=== PATIENT | female | born 1945 | race Caucasian/White ===

== ENCOUNTER 2022-04-29 10:30 | Outpatient (RCR) | payer MEDICARE, OTHER, SELFPAY ==
--- NOTE | 2022-04-19 12:07 | PT.OPE ---
PT [place] [facility] PT [facility] Start: 04/19/22 07:46 Freq: Status: Active Protocol: Document 04/19/22 12:02 CJT (Rec: 04/19/22 12:06 CJT [id number]) E-Signed By Ari Madrigal PT Physical Therapy Outpatient Evaluation Insurance Information Recert Due Date 06/18/22 Insurance Name Medicare B Medical Diagnosis Z98.890 - Other specified postprocedural states S/P Rt lateral meniscectomy Treating Diagnosis M25.561 - Rt knee pain M25.661 - Stiffness of R knee Z47.89 - Orthopedic aftercare Referring Song Liu MD Subjective Subjective Pt presents post-op R lateral meniscectomy performed on 04/05. Pt notes her pain has been okay so far. Ranges from 3-6/10. Standing after sitting for a while causes pain in posterior knee that resolves after walking. Pt has been icing/elevating consistently. Still taking tylenol occasionally. Has been doing SLR exercises for strength. Date of Last Physician Visit 04/13/22 Date of Surgery (If applicable) 04/05/22 Current Work Status Retired Precautions Weight Bearing Status Weight Bear as Tolerated Therapy Limitations/Systems Review Not Limited Objective Range of Motion R knee AROM - 0-110 L knee AROM - 0-120 Strength R knee flexion - 3/5 MMT - limited by pain R knee extension - 4/5 MMT - limited by pain Assessment Assessment/Impression Pt is a 76 year old female who presents to OP PT clinic post -op R lateral meniscectomy performed on 04/05/22. Pt complains of stiffness behind R knee following periods of extended sitting and is otherwise progressing well, icing regularly and managing her pain without use of opioids. Testing reveals deficits in strength and ROM of R knee and swelling persists in R knee capsule. Skilled PT services are medically necessary to address deficits and return patient to highest level of function. Recommend physical therapy sessions 1-2/week for 8 weeks. Pt agrees with this plan. Printout of HEP was given for I completion and pt gives verbal understanding of each exercise. Plan of Care Rehabilitation Potential Excellent Physical Therapy Goals STG - To be completed in 2-3 weeks: 1. Pt will report consistent use of ice as well as elevation of surgical limb while resting to reduce inflammation and swelling. 2. Pt will demonstrate 120 degrees of knee flexion on surgical limb to reduce risk of contracture development and progress through rehabilitation as expected. 3. Pt to demonstrate ability to ambulate without AD and without gait deviations so that she may complete trips to grocery store while pushing cart and reduce strain on B knees/hips. LTG - To be completed in 8-12 weeks: 1. Pt to be I with HEP so that they may I manage progression of symptoms. 2. Pt will demonstrate ability to ascend/descend 20 steps without pain and minimal use of hands on rail without LOB so that she may confidently climb steps in her home safely . 3. Pt will perform 10+ squats with good control over medial/ lateral deviation of knees to show improved functional strength. Treatment Plan/Direct Interventions Electrical Stimulation,Ice/ Cold/Vasopneumatic,Joint Mobilization,Manual Therapy, Neuromuscular Re-ed,Self-Care/ Home Management,Therapeutic Exercises Frequency/Duration 1-2/week for 8 weeks Patient Will Be Discharged From Therapy Completion of LTG(s),Skills Plateau,Independent w/HEP, Independently Progressing Evaluation Billing Untimed Code Treatment Minutes 20 PT Eval No Charge No Complexity Low Certification Information Initial Certification Date 04/19/22 Ending Certification Date 06/18/22
== END 2022-07-14 11:19 | disposition home or self-care (01) ==
PROVIDERS: PCP Physician Assistant Medical; Visit Provider Physician Assistant Surgical
DX: M25.561 Pain in right knee (principal); M25.661 Stiffness of right knee, not elsewhere classified; Z47.89 Encounter for other orthopedic aftercare; Z51.89 Encounter for other specified aftercare
CPT/HCPCS: 97110; 97140; 97161

== ENCOUNTER 2022-06-17 08:26 | Outpatient (CLI) | payer MEDICARE, OTHER, SELFPAY ==
[2022-06-17 13:51] LABS: Cholesterol* 222 mg/dL (90-199)
[2022-06-17 13:52] LABS: HDL Cholesterol* 73 mg/dL (>=50); LDL Cholesterol Calculated 125 mg/dL (<100); Triglycerides* 118 mg/dL (40-149)
== END 2022-06-17 08:27 | disposition home or self-care (01) ==
LOC: FRMREF 08:26
PROVIDERS: PCP Physician Assistant Medical; Visit Provider Physician Assistant Medical
DX: I25.10 Atherosclerotic heart disease of native coronary artery without angina pectoris (principal)
CPT/HCPCS: 80061

== ENCOUNTER 2022-07-30 14:52 | Outpatient (CLI) | payer MEDICARE, OTHER, SELFPAY ==
--- OUTSIDE RECORDS SUMMARY | 2022-07-30 14:54 | XMS_ITS ---
:1945 Author Care Team Providers Name Role Phone Jimmy Tran Primary Care Provider Unavailable Allergies None recorded. Medications Name Status Start Date Stop Date ? ? azithromycin 250 mg tablet Active ? Not a vailable cephalexin 500 mg capsule Active ? Not av ailable doxycycline monohydrate 100 mg capsule Active ? Not available losartan 50 mg tablet Active ? Not availa ble metoprolol succinate ER 50 mg tablet,extended release 24 hr Acti ve ? Not available olopatadine 0.2 % eye drops Active ? Not available omeprazole 20 mg capsule,delayed release Active ? Not available pravastatin 40 mg tablet Active ? Not nhan ilable Problems None recorded. Procedures None recorded. Results Lab Results None recorded. Past Encounters None recorded. Social History None recorded. Vaccine List None recorded. Plan of Care Reminders Provider Appointments None recorded. ? ? Lab None recorded. ? ? Referral None recorded. ? ? Procedures None recorded. ? ? Surgeries None recorded. ? ? Imaging None recorded. ? ? Vitals None recorded.
--- OUTSIDE RECORDS SUMMARY | 2022-07-30 14:54 | XMS_ITS | Clinical Summary ---
:1945 Author Organization [employer] [facility] [place] [address] Care Team Providers Name Role Phone Jose Manuel Irizarry MD Primary Care Provider [phone] Allergies Active Allergy Reactions Severity Noted Date Comments Celecoxib Nausea Only 06/10/2022 nausea and pres sure in head Chlorpheniramine-Phenylpro Other - Describe In 019 Itchy eyes tian Comment Field Horseradish Hives Medium 10/10/2016 Lisinopril Cough Medium 10/10/2016 Nitrofurantoin Diarrhea High 10/10/2016 Monohyd/M-Cryst Oplolwj-Ese-Pjs Reductase Myalgia Medium 10/10/2016 Inhibitors Sulfa (Sulfonamide Rash High 10/10/2016 Antibiotics) Medications Medication Sig Dispensed Refills Start End Status Date Date cholecalciferol (VITAMIN Take 1,000 0 Active D) 1,000 unit capsule Units by mouth once daily. BIOTIN ORAL Take by 0 Active mouth once daily. aspirin chewable 81 mg Take 1 0 Active chewable tablet by 7 tabletIndications: mouth once NSTEMI (non-ST elevated daily with myocardial infarction) a meal. (HC) artificial tears, Place 1 0 Ac tive hypromellose 0.5%, Drop into (ISOPTO TEARS) 0.5 % both eyes ophthalmic drop once daily if needed for Dry Eyes. polyethylene glycol Take 17 g 0 Active (MIRALAX) 17 g powder by mouth 9 for solution once daily if needed for Constipatio n. nitroglycerin Place 1 25 tablet. 1 Activ e (NITROSTAT) 0.4 mg tablet 1 sublingual under the tabletIndications: tongue NSTEMI (non-ST elevated every 5 myocardial infarction) minutes if (HC) needed for Chest Pain (first choice for chest pain). olopatadine (PATADAY) as needed 12 Active 0.2 % ophthalmic 2 solution Wheat Dextrin (Benefiber as needed 0 Active Clear) 3 gram/3.5 gram 2 pwpk metoprolol succinate Take 1 90 Tablet 3 Active (TOPROL XL) 25 mg Tablet (25 2 Sustained-Release mg) by tabletIndications: mouth once NSTEMI (non-ST elevated daily. myocardial infarction) (HC) pravastatin (PRAVACHOL) Take 1 90 Tablet 3 Active 40 mg tabletIndications: Tablet (40 2 Pure mg) by hypercholesterolemia, mouth at Hypertension, bedtime. unspecified type losartan (COZAAR) 50 mg Take 1 90 Tablet 3 Active tabletIndications: Pure Tablet (50 2 hypercholesterolemia, mg) by Hypertension, mouth once unspecified type daily. metoprolol succinate Take 1 90 Tablet 3 Discontinued (TOPROL XL) 25 mg Tablet (25 1 022 ( Reorder Sustained-Release mg) by (E -cancel not tabletIndications: mouth once sent)) NSTEMI (non-ST elevated daily. myocardial infarction) (HC) losartan (COZAAR) 50 mg TAKE 1 90 Tablet 2 Discontinued tabletIndications: TABLET BY 2 022 ( Reorder Hypertension, MOUTH EVERY (E-c ancel not unspecified type DAY sen t)) pravastatin (PRAVACHOL) Take 1 90 Tablet 2 Discontinued 40 mg tabletIndications: Tablet (40 2 022 (Reorder Pure mg) by (E-cancel not hypercholesterolemia mouth at sent)) bedtime. 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 Resolved Problems Problem Noted Date Resolved Date Elevated troponin 10/10/2016 05/05/2018 Encounters Date Type Specialty Care Team Description 07/21/2022 Refill David Chavez MD Refill Request 07/19/2022 Refill David Chavez MD Refill Request 06/11/2022 Office Visit David Chavez MD Follow Up from Last 3 Months Family History Medical History Relation Name Comments Cancer-colon Brother Coronary artery disease Father Cancer-colon Mother Relation Name Status Comments Brother Father Mother Social History Tobacco Use Types Packs/Day Years Used Date Former Smoker Cigarettes 1 17 Quit: 10/10/18 88 Smokeless Tobacco: Never Used Tobacco Cessation: Counseling Given: Yes Alcohol Use Standard Drinks/Week Comments Yes 0 (1 standard drink = 0.6 oz pure alcoho l) Alcohol Habits Answer Date Recorded How often do you have a drink containing alcohol? 2-3 times a week 02/13/2019 How many drinks containing alcohol do you have on a 1 or 2 02/13/2019 typical day when you are drinking? How often do you have six or more drinks on one Never 02/13/2019 occasion? Comment: Not asked Sex Assigned at Date Recorded Not on file Obstetrics History Last Filed Vital Signs Vital Sign Reading Time Taken Comments Blood Pressure 132/68 06/11/2022 1:28 PM CDT Pulse 57 06/11/2022 1:28 PM CDT Temperature 36.9 ??C (98.4 ??F) 02/13/2019 9:57 AM CDT Respiratory Rate 14 06/11/2022 1:28 PM CDT Oxygen Saturation 98% 02/13/2019 9:57 AM CDT Inhaled Oxygen Concentration - - Weight 88 kg (194 lb) 06/11/2022 1:28 PM CDT Height 170.2 cm (5' 7) 05/06/2018 9:00 PM CDT Body Mass Index 30.38 05/06/2018 9:00 PM CDT Plan of Treatment Health Maintenance Due Date Last Done Comments Tdap 1958 Depression screening for age 12+ 1959 Hepatitis C screening for age 0906/24/1965 18-79 Tetanus booster 1967 Colonoscopy through age 75 1992 Mammogram for age 45-75 1992 Zoster (shingles) series for age 0906/24/1997 50+ (1 of 2) DEXA/DXA scan for age 65+ 2012 Medicare Wellness for age 65+ 2012 Pneumococcal series for age 65+ (1 2012 - PCV) BMI (ht and wt on same day) for 04/26/2018 04/26/2017 age 18+ COVID-19 vaccine series (5 - 04/30/2022 03/05/2022, 021, Booster for Pfizer series) 12/23/2020, Additiona l history exists Influenza for age 65+ 06/10/2022 Lipids for age 45-75 09/11/2024 09/11/2019, 05/07/2018, 04/15/2017, Additional history exists Results Not on filefrom Last 3 Months Insurance Payer Benefit Plan / Subscriber ID Effective Dates Phone Addre ss Type Group MEDICARE PART A MEDICARE PART A [id number] 2012-Present ATTN: CLAIMS - HB USE ONLY HB ONLY [address] MEDICARE PART B MEDICARE PART B [id number] 2012-Present ATTN: CLAIMS - HB USE ONLY HB ONLY [address] [place] [address] MEDICARE - PB MEDICARE PB [id number] 2018-Present ATT N: CLAIMS USE ONLY ONLY [address] [place] [address] MEDICA MEDICA SELECT [id number] 2018-Present [address] [address] [place] [address] Advance Directives Latest Code Status on File Code Status Date Activated Date Inactivated Comments Full Code 05/05/2018 8:05 PM 05/08/2018 9:05 PM Code Status Discussion: Discussed Full Code 10/11/2016 12:23 PM 10/14/2016 3:40 PM Full Code 10/10/2016 4:54 PM 10/11/2016 12:23 PM Code Status Discussion: Discussed Care Teams Commercial Loan Officer Relationship Specialty Start Date End Date Jose Manuel Irizarry MD PCP - General Family Practice 10/26/18 [address] [place] [address]
--- NOTE | 2022-07-30 15:00 | CRLHL7_ITS ---
For Patients: As a result of the Century Cures Act, medical imaging exams and procedure reports are released immediately into your electronic medical record. You may view this report before your referring provider. If you have questions, please contact your health care provider. BILATERAL SCREENING MAMMOGRAM WITH COMPUTER-AIDED DETECTION AND TOMOSYNTHESIS TECHNIQUE: CC and MLO views were obtained. These mammographic images have been obtained using full-field digital technique. These mammographic images were interpreted with the benefit of computer-aided detection. Breast Tomosynthesis was used in this interpretation. COMPARISON FILM: 06/29/21, 06/27/20, 06/25/19. FINDINGS: There are scattered areas of fibroglandular density IMPRESSION: There is no radiographic evidence for malignancy. ASSESSMENT: BI-RADS Category 1: Negative RECOMMENDATION: Routine screening mammogram in 1 year. A lay language report of this examination will be provided to the patient. David Zambrano M.D. Diagnostic Radiologist [email or web address] ZANDER/Dictated by: David Zambrano MD @ 08/02/2022 8:43:00 AM (Electronically Signed)
== END 2022-07-30 14:53 | disposition home or self-care (01) ==
LOC: MAMMO 14:52
PROVIDERS: PCP Physician Assistant Medical; Visit Provider Physician Assistant Medical
DX: Z12.31 Encounter for screening mammogram for malignant neoplasm of breast (principal)
CPT/HCPCS: 77063; 77067

== ENCOUNTER 2022-09-24 15:11 | Emergency (ER) | payer MEDICARE, OTHER, SELFPAY ==
[2022-09-24] VITALS (11 sets, daily range): BP systolic 138–182; BP diastolic 71–92; PULSE 56–64; TEMP 36.2; O2SAT 97–98; BMI 32.0
[2022-09-24 16:11] LABS: Basophils Absolute Auto 0.02 K/uL (0.00-0.30); Basophils Percent Auto 0.4 % (0.0-3.0); Eosinophils Absolute Auto 0.14 K/uL (0.00-0.50); Eosinophils Percent Auto 2.8 % (0.0-7.0); Hematocrit 41.5 % (33.0-51.0); Hemoglobin* 13.6 gm/dL (12.0-16.0); Immature Granulocytes Abs Auto 0.01 K/uL (0.00-0.30); Immature Granulocytes Pct Auto 0.2 %; Lymphocytes Absolute Auto 1.69 K/uL (0.90-2.90); Lymphocytes Percent Auto 33.6 % (20-44); Mean Corpuscular HGB Conc 33 gm/dL (32-36); Mean Corpuscular Hemoglobin 31 pg (26-34); Mean Corpuscular Volume 94 fL (80-100); Neutrophils Absolute Auto 2.82 K/uL (1.7-7.0); Platelet Count* 239 K/uL (140-440); RDW Coefficient of Variation % 12.9 % (11.5-15.5); Slide Review Reflex No; White Blood Count* 5.03 K/uL (4.50-11.00)
--- NOTE | 2022-09-24 16:16 | CRLHL7_ITS ---
For Patients: As a result of the Century Cures Act, medical imaging exams and procedure reports are released immediately into your electronic medical record. You may view this report before your referring provider. If you have questions, please contact your health care provider. INDICATION: Chest pain COMPARISON: May 05, 2018 TECHNIQUE: PA and lateral views of the chest were acquired FINDINGS: TUBES AND LINES: None. HEART AND MEDIASTINUM: The heart size is normal. The mediastinal contour appears normal for patient age. LUNGS AND PLEURAL SPACES: The lungs appear normal.The pleural spaces are unremarkable. OSSEOUS STRUCTURES: Age-appropriate appearance. No acute focal finding. IMPRESSION: No evidence of active pulmonary disease. Dictated by Garo Clemente MD @ 09/24/2022 5:25:18 PM (Electronically Signed)
--- NOTE | 2022-09-24 16:17 | ED_ITS ---
HPI - Chest Pain General Chief Complaint: Chest Pain Stated Complaint: Chest pain Time Seen by Provider: 09/24/22 15:56 Source: patient and family Mode of arrival: ambulatory Limitations: no limitations History of Present Illness HPI narrative: Year old female with a notable history of coronary artery disease, stents placed 5 years ago presents to the emergency department with intermittent chest pressure. Symptoms happen with light activity but are not worsened by exertion. They tend to happen more often after meals and she describes as a pressure sensation, substernal. Sometimes accompanied by dizziness but not by nausea or vomiting. No shortness of breath. She says that her last episode was last night last about 1 hour. 30 minutes into the episode she tried taking nitroglycerin with no improvement. Have episodes every few days, sometimes taking the nitroglycerin with no response. The nitroglycerin does seem to make her fatigued which would make sense but has no effect on the pressure. She d enies a history of heartburn or reflux. On specific questioning, she does confirm for me that she has a history of a hiatal hernia that had been seen on CT scan, probably told this about 1 year ago. She had her stent is 5 years ago, uncomplicated. She says that she had a stress test 1 or 2 years ago that was reportedly normal. Review of the records shows that this was almost exactly 3 years ago but was in fact normal. There is no trauma nor injury. Episodes do typically happen more so after meals. He has not tried taking antacids or other similar medications to help with her symptoms. No history of endoscopy. 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 Of note, we do not have advance cardiology capabilities at our [facility]. She does take her aspirin and beta-johnson religiously. She has not been able to tolerate high-dose statins but does take pravastatin. Past medical history is notable mostly for coronary artery disease, hypertension, hyperlipidemia. She has had a cholecystectomy, an appendectomy and most recently an arthroscopy of her knee. Stents were placed 5 years ago, nearly 6. Family history is notable for premature coronary artery disease and multiple members with hyperlipidemia. Socially she is a nonsmoker, no pertinent travel recent alcohol. Medications reviewed, updated, allergies noted, none pertinent today. ROS is notable for the intermittent episodes of pressure lasting 1 hour as stated above, otherwise denies times 12 systems. Related Data Home Medications Medication Instructions Recorded Confirmed acetaminophen 500 mg tablet mg PO PRN 04/13/22 09/24/22 ascorbic acid 100 mg-elderberry tab PO DAILY 04/13/22 09/24/22 fruit 50 mg chewable tablet (Airborne (elderberry)) aspirin 81 mg chewable tablet 81 mg PO DAILY 04/13/22 09/24/22 betamethasone, augmented 0.05 % 1 applic topical PRN 04/13/22 09/24/22 topical cream cholecalciferol (vitamin D3) 50 50 mcg PO QDAY 04/13/22 09/24/22 mcg (2,000 unit) capsule fluorouracil 5 % topical cream 5 applic topical .One Day Per Week 04/13/22 09/24/22 losartan 50 mg tablet mg PO DAILY 04/13/22 09/24/22 meclizine 25 mg tablet 25 mg PO PRN 04/13/22 09/24/22 metoprolol succinate 25 mg mg PO DAILY 04/13/22 09/24/22 tablet,extended release 24 hr mupirocin 2 % topical ointment 1 topical PRN 04/13/22 09/24/22 nitroglycerin 0.4 mg sublingual 1 mg sublingual .As Needed PRN 04/13/22 09/24/22 tablet omeprazole 20 mg capsule,delayed mg PO DAILY 04/13/22 09/24/22 release polyethylene glycol 3350 17 g PO DAILY 04/13/22 09/24/22 gram/dose oral powder pravastatin 40 mg tablet mg PO .Bedtime 04/13/22 09/24/22 wheat dextrin 3 gram/3.8 gram oral PO 04/13/22 09/24/22 powder Previous Rx's Medication Instructions Recorded nirmatrelvir 300 mg (150 mg See Rx Instructions PO .COMPLEX 05/12/22 x2)-ritonavir 100 mg tablet,dose #30 tabs pack(EUA) (Paxlovid) finasteride 5 mg tablet 2.5 mg PO DAILY #45 tabs 06/10/22 Allergies Allergy/AdvReac Type Severity Reaction Status Date / Time horseradish Allergy Severe Rash Verified 09/24/22 14:36 nitrofurantoin Allergy Intermediate Diarrhea Verified 09/24/22 14:36 lisinopril Allergy Mild dry cough Verified 09/24/22 14:36 celecoxib Allergy Unknown Verified 09/24/22 14:36 HMG-CoA reductase inhibitor Allergy Intermediate muscle Uncoded 09/24/22 14:36 aches Sulfa drugs Allergy Intermediate rash, Uncoded 09/24/22 14:36 hives, nausea PFSH PFSH Medical History Actinic keratitis Brainstem infarction Cerebellar infarction COVID Diplopia Normal cardiac stress test Normal nuclear stress test RUQ pain Surgical History History of arthroscopic knee surgery (04/05/22) History of cholecystectomy History of colectomy History of colonoscopy History of incisional hernia repair History of tonsillectomy (10/20/09) History of varicose vein ligation and stripping (10/20/09) S/P right colectomy (10/20/09) 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) Family History Father Atherosclerosis Hyperlipidemia Mother Colon cancer Parkinson's disease Brother Colon cancer Family/Other Hyperlipidemia Social History Narrative: Does not use illicit drugs Former cigarette smoker, quit in 1985 , 3 children Occasional alcohol consumption Smoking Status: Former smoker How often do you have a drink containing alcohol: 2-3 times a week How many standard drinks containing alcohol do you have on a typical day: 1 or 2 How often do you have six or more drinks on one occasion: Never AUDIT-C Alcohol total score: 3 Non-prescribed substance use: denies use Exam Const Vital Signs, click to edit/add: Vital Signs - 24 hr 09/24/22 15:25 09/24/22 15:46 09/24/22 15:47 Temperature 97.2 F L Pulse Rate 56 L 58 L Pulse Rate [Left Pulse Oximeter] 56 L Blood Pressure 182/92 H Blood Pressure [Right Upper Arm] 157/79 H Pulse Oximetry 98 98 98 Oxygen Delivery Method Room Air 09/24/22 16:02 09/24/22 16:26 09/24/22 16:30 Temperature Pulse Rate 62 56 L Pulse Rate [Left Pulse Oximeter] Blood Pressure 160/86 H Blood Pressure [Right Upper Arm] Pulse Oximetry 98 97 Oxygen Delivery Method 09/24/22 16:32 09/24/22 16:33 09/24/22 17:00 Temperature Pulse Rate 61 57 L 56 L Pulse Rate [Left Pulse Oximeter] Blood Pressure 145/80 H Blood Pressure [Right Upper Arm] Pulse Oximetry 97 97 97 Oxygen Delivery Method 09/24/22 17:02 Temperature Pulse Rate 64 Pulse Rate [Left Pulse Oximeter] Blood Pressure 138/71 Blood Pressure [Right Upper Arm] Pulse Oximetry 98 Oxygen Delivery Method Documenting provider has reviewed patient's vital signs: yes Common normals: no apparent distress General appearance: cooperative, comfortable and well kempt HENMT Common normals: normocephalic Head and scalp: normocephalic Mouth: oral and palatal mucosa normal Throat: posterior oropharynx normal Eye Common normals: PERRL, conjunctivae normal and no scleral icterus Conjunctiva: conjunctiva(e) normal Pupil: PERRL Neck & C-Spine Common normals: full ROM, no lymphadenopathy and supple Resp Common normals: normal respiratory effort, no use of accessory muscles and clear to auscultation bilaterally Effort & inspection: able to speak in complete sentences Auscultation: clear to auscultation bilaterally Cardio Common normals: regular rate, regular rhythm, S1 normal heart sound, S2 normal heart sound and no murmurs Rate: regular rate Rhythm: regular rhythm Heart sounds: S1 normal and S2 normal GI Common normals: Normal to inspection, nondistended, normoactive bowel sounds present, soft to palpation, non-tender, no hepatosplenomegaly and no masses Palpation: soft and no hepatosplenomegaly Extremity Common normals: normal to inspection and no pedal edema Neuro Speech: speech normal Motor exam: strength 5/5 throughout, no tremor noted and no movement abnormalities noted Psych Common normals: speech normal Appearance: well kempt Activity/motor behavior: appropriate eye contact Speech: normal speech Insight: insight good Skin Common normals: no rashes or lesions noted General skin exam: no rashes or lesions noted Course Vital Signs Vital signs: Initial Vital Signs Temperature 97.2 F L 09/24/22 15:25 Temperature Source Temporal Artery Scan 09/24/22 15:25 Pulse Rate 56 L 09/24/22 15:25 Blood Pressure 157/79 H 09/24/22 15:25 Blood Pressure Mean 105 09/24/22 15:25 Blood Pressure Position Sitting 09/24/22 15:25 Pulse Oximetry 98 09/24/22 15:25 Oxygen Delivery Method 09/24/22 15:25 Vital Signs Temperature 97.2 F L 09/24/22 15:25 Pulse Rate 56 L 09/24/22 15:25 Blood Pressure 157/79 H 09/24/22 15:25 Pulse Oximetry 98 09/24/22 15:25 Oxygen Delivery Method 09/24/22 15:25 Temperature 97.2 F L 09/24/22 15:25 Pulse Rate 64 09/24/22 17:02 Blood Pressure 138/71 09/24/22 17:02 Pulse Oximetry 98 09/24/22 17:02 Oxygen Delivery Method 09/24/22 15:25 MDM - Chest Pain MDM Narrative Medical decision making narrative: Differential diagnosis including GERD, hiatal hernia, acute coronary syndrome, congestive heart poor, bronchospasm, soft tightest, multiple other etiologies. We her troponins reassuring, EKG sore reassuring. I actually most suspicious of hiatal hernia since her episodes have not responded to nitroglycerin. But significant cardiac history and no stress test for about 3 years. I do recommend we check serial troponins, get a chest x-ray, try some omeprazole. She was agreeable to this. I would recommend that we do a trial of PPI and set her up for a stress test outpatient for workup today is negative. Update: Labs reassuring, chest x-ray negative per my interpretation. Reviewed with Radiology interpretation as well. Patient meaning asymptomatic in the ED. Serial troponins are not likely be helpful since she has not had any symptoms within the last 12 hours. See discharge instructions, alarm symptoms reviewed. All questions answered. Medical Records Data Attestation: I reviewed the patient's medical records. Medical records narrative: Stress test from 09/27/19 Lab Data Attestation: I reviewed the patient's lab results. Labs: Lab Results 09/24/22 09/24/22 09/24/22 Range/Units 15:41 15:53 15:53 WBC 5.03 (4.50-11.00) K/uL RBC 4.40 (4.00-5.20) m/uL Hgb 13.6 (12.0-16.0) gm/dL Hct 41.5 (33.0-51.0) % MCV 94 (80-100) fL MCH 31 (26-34) pg MCHC 33 (32-36) gm/dL RDW Coeff of Hollis 12.9 (11.5-15.5) % Plt Count 239 (140-440) K/uL Neut % (Auto) 56.0 (42.0-72.0) % Lymph % (Auto) 33.6 (20-44) % [place] % (Auto) 7.0 (0.0-11.0) % Eos % (Auto) 2.8 (0.0-7.0) % Baso % (Auto) 0.4 (0.0-3.0) % Neut # (Auto) 2.82 (1.7-7.0) K/uL Lymph # (Auto) 1.69 (0.90-2.90) K/uL [place] # (Auto) 0.40 (0.00-0.90) K/UL Eos # (Auto) 0.14 (0.00-0.50) K/uL Baso # (Auto) 0.02 (0.00-0.30) K/uL Sodium 140 (135-149) mmol/L Potassium 3.9 (3.6-5.1) mmol/L Chloride 106 (96-114) mmol/L Carbon Dioxide 27 (20-32) mmol/L BUN 16 (7-30) mg/dL Creatinine 0.7 (0.5-1.5) mg/dL Estimated Creat Clear 45.50 Estimated GFR 90 ml/min Glucose 152 H (60-115) mg/dL Calcium 9.1 (8.4-10.6) mg/dL Troponin I < 0.01 L (0.01-0.04) ng/mL NT-Pro-B Natriuret Pep 424 pg/mL POC Troponin I 0.00 L (0.01-0.04) ng/ml ECG Data Attestation: I personally reviewed and interpreted this ECG as follows: Prior ECG tracings: available for review Interpretation: Mild sinus bradycardia with a rate of 56. No ST or T-wave abnormalities. Normal axis. Discharge Plan Discharge Clinical Impression: Chest pain Patient Disposition: Home w/ Parent or Adult Condition: Improved Instructions: Chest Pain (DC) Additional Instructions: There are no signs of a heart attack today, this is good news. I do not see any signs of lung problems, heart failure or other abnormalities. I am suspicious that your symptoms are from a hiatal hernia. Because of your cardiac history, I do recommend that we get you scheduled for a new stress test. Unfortunately the manufacturing scheduler has left for the day. They will call you on Tuesday to arrange this at a time that is convenient for you. In the interim, I would like you taking 20 mg of omeprazole daily and abiding by the dietary recommendations that we discussed. You may continue to either nitroglycerin to see if it improves your symptoms. Come back to the emergency department if her symptoms worsen significantly, especially if accompanied by shortness of breath, syncope, rapid heart rate or other abnormality. Activity Level: Activity as Tolerated Discharge Diet: Regular Prescriptions: No Action Paxlovid (EUA) 300 mg (150 mg x 2)-100 mg tablet See Rx Instructions PO .COMPLEX Qty: 30 0RF Rx Instructions: take TWO 150 mg tablets of nirmatrelvir with ONE 100 mg tablet of ritonavir twice daily for 5 days PO wheat dextrin 3 gram/3.8 gram powder PO metoprolol succinate 25 mg tablet extended release 24 hr PO DAILY pravastatin 40 mg tablet PO .Bedtime polyethylene glycol 3350 17 gram/dose powder PO DAILY aspirin 81 mg tablet,chewable 81 mg PO DAILY ascorbic acid-elderberry fruit [Airborne (elderberry)] 100-50 mg tablet,chewable PO DAILY cholecalciferol (vitamin D3) 50 mcg (2,000 unit) capsule 50 mcg PO QDAY meclizine 25 mg tablet 25 mg PO PRN mupirocin 2 % ointment 1 topical PRN Rx Instructions: Apply thin layer to infected abrasions/superficial lacerations of the skin. betamethasone, augmented 0.05 % cream 1 applic topical PRN Rx Instructions: Apply thin layer to itchy skin/allergic reaction on skin twice daily as needed. acetaminophen 500 mg tablet PO PRN fluorouracil 5 % cream 5 applic topical .One Day Per Week omeprazole 20 mg capsule,delayed release(DR/EC) PO DAILY losartan 50 mg tablet PO DAILY nitroglycerin 0.4 mg tablet, sublingual 1 mg sublingual .As Needed PRN finasteride 5 mg tablet 2.5 mg PO DAILY Qty: 45 2RF Follow Up/Referrals: Judy Taveras PA-C [Primary Care Provider] - Stand Alone Forms: [place] Info Instructions
[2022-09-24] MEDS: OMEPRAZOLE 20 MG CAPSULE DR PO (16:25)
[2022-09-24 16:31] LABS: Chloride* 106 mmol/L (96-114); Potassium* 3.9 mmol/L (3.6-5.1); Sodium* 140 mmol/L (135-149)
[2022-09-24 16:34] LABS: Blood Urea Nitrogen* 16 mg/dL (7-30); Calcium* 9.1 mg/dL (8.4-10.6); Carbon Dioxide* 27 mmol/L (20-32); Creatinine* 0.7 mg/dL (0.5-1.5); Estimated Glomerular Filt Rate 90 ml/min; Glucose* 152 mg/dL (60-115)
[2022-09-24 16:46] LABS: NT Pro B Type NatriureticPept* 424 pg/mL
[2022-09-24 16:47] LABS: Troponin I* < 0.01 ng/mL (0.01-0.04)
== END 2022-09-24 17:26 | disposition home or self-care (01) ==
PROVIDERS: Emergency Medicine Emergency Medical Services; Emergency Provider Family Medicine; PCP Physician Assistant Medical
DX: R07.9 Chest pain, unspecified (principal)
CPT/HCPCS: 36415; 71046; 80048; 83880; 84484; 85025; 93005; 99283; 99285; A9270

== ENCOUNTER 2022-11-02 14:45 | Outpatient (CLI) | payer MEDICARE, OTHER, SELFPAY ==
[2022-11-02 16:15] VITALS: BP 134/67; PULSE 79
--- NOTE | 2022-11-02 20:51 | W.PM.STED ---
Stress Test Note Date Date of test: 11/02/22 Providers Referring provider: David Chavez Primary care provider: Judy Taveras Stress test physician: Mohinder Stallings Stress Test Note Stress test ordered: Stress Echo Indication for test: chest pain Results discussion: Patient is a 77-year-old female who presents for the above test after discussion the risks benefits and side effects she would like to proceed. Pretest EKG shows normal sinus rhythm, with a ventricular rate of 59 and a blood pressure 131 on 79, she is exercised for a total time of 4 minutes 56 seconds and achieved a metabolic living of 6.8 minute Mets. Maximum heart rate was 146 was 118% of the maximum, there was some ST wave depression of 2 mm noted inferiorly, and 1 mm noted laterally in V5 and V6, these says changes improved while at rest, she had no chest pain, and just felt fatigued Impression: Positive stress test was changes inferior lateral on the EKG. Need to correlate this with the echo portion. Follow up suggested: Await echo reading, clinical correlation with this will be needed, reported this will be sent to the ordering providers. Patient had excellent exercise tolerance
== END 2022-11-02 14:46 | disposition home or self-care (01) ==
LOC: STRESS 14:46
PROVIDERS: PCP Physician Assistant Medical; Visit Provider Internal Medicine Cardiovascular Disease
DX: R07.89 Other chest pain (principal)
CPT/HCPCS: 93016; 93325; 93351

== ENCOUNTER 2022-12-07 13:45 | Outpatient (RCR) | payer MEDICARE, OTHER, SELFPAY ==
--- NOTE | 2022-09-30 11:04 | PT.OPE ---
PT [place] Outpatient Eval PT [facility] Outpatient Eval Start: 09/29/22 14:23 Freq: Status: Active Protocol: Document 09/29/22 11:01 CJT (Rec: 09/30/22 11:04 CJT [id number]) E-signed By Ari Madrigal PT Physical Therapy Outpatient Evaluation Insurance Information Recert Due Date 11/10/22 Insurance Name Medicare B Medical Diagnosis S86.111D - strain of other muscle(s) and tendon(s) of posterior muscle group at lower leg level, R leg, subsequent encounter Treating Diagnosis M79.604 - R leg pain Referring Song Chow MD Subjective Subjective Pt presents with pain in R calf following an incident in which she was pressing a sewing pedal while standing. This occurred about 4 weeks ago. The pain was originally in entire posterior lower leg but is now located mainly behind her R knee. Tylenol helps with her pain. Keeps her knee slightly bent when she is in bed because keeping it straight causes it to ache more. Pain Comments Date of Last Physician Visit 09/16/22 Current Work Status Retired Precautions Therapy Limitations/Systems Review Not Limited Objective Other/Pertinent Objective R knee AROM: 0-115 L knee ROM: 0-123 R Ankle AROM: 56/16/5 L Ankle AROM: 56/0/-5 Tenderness/pain noted with palpation to medial/lateral gastroc heads on R, increased tenderness at proximal tendon. Assessment Assessment/Impression Pt is a 77 year old female and well known to our clinic. She presents with R gastroc strain following pressing a sewing pedal when she was helping a friend sew a quilt in standing. Pain is slightly reduced since injury about 1 month ago but pain persists in proximal gastroc on R. Pts ankle ROM is actually quite good on R, strength is limited due to soreness and pain. She will benefit from exercise, massage, and other modalities to facilitate healing. The nature of the pts condition was explained and all questions were answered to the pts satisfaction. Skilled PT services are medically necessary to address deficits and return patient to highest level of function. Recommend physical therapy sessions 2/ week for 6 weeks. Pt agrees with this plan. Printout of HEP was given for I completion and pt gives verbal understanding of each exercise . Primary Functional Limitations Walking Plan of Care Rehabilitation Potential Excellent Physical Therapy Goals STG - To be completed in 2-3 weeks: 1. Pt will report reduction in R gastroc pain by factor of 2 with all activities so that she may complete all ADLs and shop for groceries with tolerable level of pain. LTG - To be completed in 6 weeks: 1. Pt to be I with HEP so that she may I manage progression of symptoms. 2. Pt will report ability to walk up to 20 minutes with without increased in R calf pain so that she may continue to walk with her for pleasure/exercise. 3. Pt will demo equal ankle DF bilaterally to allow for equal stride length and reduced gait abnormalities. Treatment Plan/Direct Interventions Electrical Stimulation,Heat, Ice/Cold/Vasopneumatic,Joint Mobilization,Manual Therapy, Neuromuscular Re-ed,Self-Care/ Home Management,Therapeutic Exercises,Ultrasound Frequency/Duration 2/week for 6 weeks Patient Will Be Discharged From Therapy Completion of LTG(s),Skills Plateau,Independent w/HEP, Independently Progressing Evaluation Billing Untimed Code Treatment Minutes 25 PT Eval No Charge No Complexity Low Certification Information Initial Certification Date 09/29/22 Ending Certification Date 11/10/22 Provider Signature Shows Agreement With POC & Medical Necessity Physician Signature & Date Requested Please Sign/Date Here Physician Comment/Change : Physician NPI Number #
== END 2023-04-28 23:59 | disposition home or self-care (01) ==
PROVIDERS: PCP Physician Assistant Medical; Visit Provider Orthopaedic Surgery Sports Medicine
DX: S86.111D Strain of other muscle(s) and tendon(s) of posterior muscle group at lower leg level, right leg, subsequent encounter (principal); Z51.89 Encounter for other specified aftercare
CPT/HCPCS: 97032; 97110; 97140; 97161

== ENCOUNTER 2022-12-16 07:58 | Outpatient (CLI) | payer MEDICARE, OTHER, SELFPAY ==
--- NOTE | 2022-12-16 08:15 | MR_ITS ---
[address] [address] Phone:?[phone] Fax:?[phone] Referring Physician Information: Song Thomas M.D. [id number] [facility] [address] Phone:?[phone] Fax:?[phone] Patient:Bobby Hay D.O.B:?1945 Sex:?Female Phone:?[phone] [facility] MRN:?[id number] Exam Date:?12/16/2022 ? EXAM: MRI of the RIGHT KNEE, without contrast CLINICAL: Right knee pain with history of prior meniscal tear and prior posterior lateral meniscectomy. COMPARISONS: MRI 03/28/2022. X-rays 02/24/2022. TECHNICAL: MR sequences of the right knee: sagittals: PD, PDFS coronals: PD, T2FS axials: PD, PDFS SEDATION: None. CONTRAST: None. FINDINGS: Ligaments: ACL: Intact and unremarkable. PCL: Intact and unremarkable. MCL: Intact and unremarkable. LCL: Intact and unremarkable. Posterolateral corner: Popliteus, biceps femoris, iliotibial band, and the popliteofibular ligament appear intact. Posteromedial corner: Semimembranosus, pes anserine tendons and posterior oblique ligament appear intact. Extensor mechanism: Patellar tendon: Intact, without tendinopathy. Quadriceps tendon: Intact, without tendinopathy. Retinacula: Medial and lateral retinacula are intact. Fat pads: Unremarkable infrapatellar Hoffa's, quadriceps and prefemoral fat pads. Patellofemoral joint: Patella: There is full-thickness chondral loss involving the patellar median ridge extending into the medial patellar facet with mild underlying subchondral reactive edema, similar to prior exam. Trochlea: Chondromalacia appears similar to prior exam. No new chondral defects. Medial compartment: Medial meniscus: No evidence of discrete meniscal tear or meniscal displacement. Medial cartilage: Small segment of full-thickness chondral loss with adjacent deep chondral delamination involving the anterior weightbearing medial femoral condyle on coronal series 8 images 16-17, new compared to prior exam. Medial compartment cartilage otherwise appears maintained. Lateral compartment: Lateral meniscus: There is complex tearing of the posterior horn extending into the posterior root and into the body segment, similar to mildly increased compared to prior exam. Mild attenuation of the posterior horn likely postsurgical in nature. Lateral cartilage: Full-thickness chondral loss involving the lateral femoral condyle and lateral tibial plateau is increased compared to prior examination, with subchondral marrow edema involving the medial femoral condyle. Question a developing small subchondral fracture involving the peripheral lateral femoral condyle adjacent to the posterior horn lateral meniscus on coronal series 7 image 20-22. Knee joint: Effusion: Moderate partially visualized right knee effusion. Intra-articular bodies:?No convincing bodies identified. Popliteal cyst: Tiny. Bones: Please see above for findings involving the lateral femoral condyle. No additional osseous fracture site is identified. IMPRESSION: 1. Tearing of the lateral meniscus appears similar to mildly increased compared to prior exam, with mild attenuation of the posterior horn which is likely postsurgical in nature. 2. Full-thickness chondral loss involving the lateral compartment is increased compared to prior examination with subchondral marrow edema and question of a developing small subchondral fracture involving the peripheral lateral femoral condyle. 3. Small segment of high-grade chondral loss and adjacent deep chondral delamination involving the anterior medial femoral condyle, new compared to prior exam. 4. Moderate partially visualized joint effusion. [facility] Electronically signed on 12/16/2022 11:31:00 AM by Serafin Villavicencio D.O.
== END 2022-12-16 07:59 | disposition home or self-care (01) ==
LOC: MRI 07:59
PROVIDERS: PCP Physician Assistant Medical; Visit Provider Orthopaedic Surgery Sports Medicine
DX: M25.561 Pain in right knee (principal); M23.251 Derangement of posterior horn of lateral meniscus due to old tear or injury, right knee; M25.461 Effusion, right knee
CPT/HCPCS: 73721

== ENCOUNTER 2023-02-01 09:30 | Outpatient (CLI) | payer MEDICARE, OTHER, SELFPAY | END 2023-02-01 09:31 | disposition home or self-care (01) | LOC: NFLDREF 02-04 11:16 | PROVIDERS: PCP Physician Assistant Medical; Referring Provider Physician Assistant Medical; Visit Provider Internal Medicine | DX: I63.9 Cerebral infarction, unspecified (principal) | CPT/HCPCS: 80061 ==

== ENCOUNTER 2023-02-09 14:43 | Outpatient (CLI) | payer MEDICARE, OTHER, SELFPAY ==
--- NOTE | 2023-02-09 15:00 | CRLHL7_ITS ---
For Patients: As a result of the Century Cures Act, medical imaging exams and procedure reports are released immediately into your electronic medical record. You may view this report before your referring provider. If you have questions, please contact your health care provider. Indication: RT LATERAL ABD PAIN Technique: Postcontrast CT abdomen and pelvis. 97 cc Isovue 370 intravenous contrast and oral water. Please note that all CT scans at this facility use dose modulation, iterative reconstruction, and/or weight-based dosing when appropriate to reduce radiation dose to as low as reasonably achievable. Comparison: 11/14/2020 Findings: Dependent atelectasis in both lung bases without pleural effusion. No free intraperitoneal air. There is no suspicious intrahepatic mass. A simple less than 1 cm cyst in the right hepatic lobe is again noted. Simple cyst in the upper pole of the right kidney is present measuring 1.8 cm. Left kidney normal. Normal adrenal glands. Spleen within normal limits. Normal incidental splenule. Pancreatic parenchyma is unremarkable. The gallbladder is absent. No biliary obstruction. Normal postoperative appearance of the common bowel duct. Incidental calcification adjacent to the right hepatic lobe is again noted. Atherosclerotic changes in the aorta without aneurysm. No intra-abdominal or intrapelvic adenopathy. Normal ovaries and uterus. Incidental calcification within the uterine fundus. The bladder is normal. No bowel obstruction or inflammatory change. No evidence of diverticulitis. Mild diverticulosis. Increased stool within colon. No small bowel obstruction. Small hiatal hernia. Postop changes to the midline of the abdominal wall without hernia. Incidental varicosities in the right upper thigh. Chronic degenerative disc disease and spondylolisthesis at L4-5. Postop changes posterior elements of L4 and L5, as before. Intraosseous hemangioma within T12. Impression: Mild colonic diverticulosis. No diverticulitis. Diffuse moderate colonic stool burden compatible with constipation. No small bowel obstruction. Please note that all CT scans at this facility use dose modulation, iterative reconstruction, and/or weight-based dosing when appropriate to reduce radiation dose to as low as reasonably achievable. Dictated by David Zambrano MD @ 02/10/2023 12:59:21 PM (Electronically Signed)
[2023-02-09 15:44] LABS: Creatinine* 0.8 mg/dL (0.5-1.5); Estimated Glomerular Filt Rate 77 ml/min
== END 2023-02-09 14:44 | disposition home or self-care (01) ==
LOC: CT 14:44
PROVIDERS: PCP Physician Assistant Medical; Visit Provider Physician Assistant Medical
DX: R10.9 Unspecified abdominal pain (principal); K57.30 Diverticulosis of large intestine without perforation or abscess without bleeding; K59.00 Constipation, unspecified
CPT/HCPCS: 36415; 74177; 82565; Q9967

== ENCOUNTER 2023-06-06 07:21 | Day surgery (SDC) | payer MEDICARE, OTHER, SELFPAY ==
[2023-06-06] VITALS (25 sets, daily range): BP systolic 98–177; BP diastolic 50–84; PULSE 48–104; RESP 10–20; TEMP 35.1–36.3; O2SAT 91–100; BMI 31.3
[2023-06-06] MEDS: LACTATED RINGERS 1000 ML 1,000 ML 100 ML IV (08:15)
[2023-06-06] MEDS: SODIUM CHLORIDE 0.9 % (FLUSH) 10 ML SYRINGE IVF (08:15)
[2023-06-06] MEDS: OXYCODONE (CR) 10 MG TAB.ER.12H PO (08:19)
[2023-06-06] MEDS: ACETAMINOPHEN 500 MG TABLET 1000 MG PO ×3 (08:19→21:21)
[2023-06-06] MEDS: MIDAZOLAM HCL 1 MG/ML inj IVP (08:57)
[2023-06-06] MEDS: fentaNYL 100 MCG/2 ML inj IVP (08:57)
--- NOTE | 2023-06-06 09:03 | P.NB_ITS ---
Nerve Block Nerve Block Time Seen by Provider: 09:02 Date Seen: 06/06/23 Type of block requested by surgeon for post-operative analgesia: adductor canal Side: right Time out performed: Yes Verification of patient name: Yes Verification of date of : Yes Site marking: site marked Name of person performing procedure: Fransico Continuous monitoring Was continuous monitoring of O2 sat, B/P, manager monitoring, recorded every 15 minutes?: Yes Procedure Checklist: sterile prep, needles and gloves Ultrasound guided. Images saved: Yes Medications given in 5ml increments after negative aspiration: Ropivicaine %: 0.5 mL: 20 Needle gauge: 20 Decadron (mg): 10 Precedex (mcg): 25 Patient tolerated procedure well: Yes Additional comments: Needle noted adjacent to nerve Block Charges Block Charge (with Pro Fee): Femoral Nerve Use of Ultrasound Machine for Block: Yes- US Guidance/pain block
--- NOTE | 2023-06-06 09:03 | W.ANESCHARGE ---
Anesthesia Charges Start Date/Time Anesthesia Start Date: 06/06/23 Anesthesia Start Time: 09:52 Stop Date/Time Anesthesia Stop Date: 06/06/23 Anesthesia Stop Time: 12:01 Summary Extremes of Age - Over 70 or under 1: MDA
--- NOTE | 2023-06-06 09:04 | P.NB_ITS ---
Nerve Block Nerve Block Time Seen by Provider: 09:02 Date Seen: 06/06/23 Type of block requested by surgeon for post-operative analgesia: geniculars Side: right Time out performed: Yes Verification of patient name: Yes Verification of date of : Yes Site marking: site marked Name of person performing procedure: Fransico Continuous monitoring Was continuous monitoring of O2 sat, B/P, booster station operator, recorded every 15 minutes?: Yes Procedure Checklist: sterile prep, needles and gloves Medications given in 5ml increments after negative aspiration: Ropivicaine %: 0.5 mL: 9 Needle gauge: 25 Patient tolerated procedure well: Yes Block Charges Block Charge (with Pro Fee): Genicular Nerve Block Use of Ultrasound Machine for Block: No
--- NOTE | 2023-06-06 09:07 | SUR.PREOP ---
TIME?OUT:?0857 PT/RN/MDA?VERIFICATION?OF?SURGICAL?SITE,?PROCEDURE,?AND?CONSENT OBTAINED?PRIOR?TO?INVASIVE?PROCEDURE.
[2023-06-06] MEDS: CEFAZOLIN 2 GM in 0.9 % SODIUM CHLORIDE Mini-bag 100 ML IVPB ×3 (10:05→23:16)
--- NOTE | 2023-06-06 10:05 | XR_ITS ---
Patient: LUCRETIA CHANDRA Facility:?[facility] Patient ID:?[id number] Site Patient ID:?[id number]. Site :?[id number] Study:?XRay-Extremity Right Knee 2v-06/06/2023 1:20:04 PM Ordering Physician:Rodriguez Final Report: INDICATION: Right knee post operative 2v TECHNIQUE: Knee radiograph 2 views right COMPARISON: None FINDINGS: Bone: No acute fractures or aggressive bone lesions are identified. Joint: The patient is status post a total knee arthroplasty with patellar resurfacing. No significant knee effusion is seen. Soft tissue: Anterior subcutaneous gas and joint gas are present from recent surgery. No radiopaque foreign bodies are seen. IMPRESSION: 1. There is an unremarkable postoperative appearance of the knee arthroplasty. Dictated by: Solis Blakely MD @ 06/06/2023 13:55:57 Signed by:?Solis Blakely MD @06/06/2023 1:55:57 PM (Electronic Signature)
--- NOTE | 2023-06-06 10:22 | SUR.OPER ---
PATIENT QUESTIONS ANSWERED SATISFACTORILY PREOPERATIVELY.? PATIENT BROUGHT TO OR #3 PER CART AFTER ADMINISTRATION OF A BLOCK.? Patient positioned supine on OR #3 bed.? The perioperative?team supported arms bilaterally on arm boards.? Final approval of positioning by surgeon.?
--- NOTE | 2023-06-06 12:15 | W.ANESCHARGE ---
Anesthesia Charges Start Date/Time Anesthesia Start Date: 06/06/23 Anesthesia Start Time: 09:52 Stop Date/Time Anesthesia Stop Date: 06/06/23 Anesthesia Stop Time: 12:01
[2023-06-06] MEDS: OXYCODONE 5 MG TABLET PO ×4 (14:38→21:29)
--- NOTE | 2023-06-06 15:39 | PM.IMCN1 ---
Date of Consult Patient: [facility] Patient Consult date: 06/06/23 Requesting Physician: Orthopedics Primary Care Provider: Judy Taveras PA-C Consult Narrative Reason for consult: Medical management of comorbidities Narrative: Oswaldo Cxo is a 77 year old female who presented to the hospital today for an elective R TKA. There were no surgical or anesthetic complications noted during procedure. Patient's H&P reviewed, PCP is Judy Taveras. Past medical history significant for: CAD (s/p NSTEMI with PCI to mid-LAD in 2016. CP in 09/30, stress echo 11/01/22 was + for ischemia involving mid/apical anterior and anteroseptal nj now s/p coronary angiography on 11/2022 without evidence of obstructive CAD) on Plavix, CVA (no residual symptoms). 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 of gallbladder (ICD-10) Arthritis of carpometacarpal (CMC) joint of both thumbs (12/03/09) ?M18.0 - Bilateral primary osteoarthritis of first carpometacarpal joints (ICD-10) Tendinitis of right ankle ?M77.51 - Other enthesopathy of right foot and ankle (ICD-10) Prediabetes ?R73.03 - Prediabetes (ICD-10) Migraine headache ?G43.909 - Migraine, unspecified, not intractable, without status migrainosus (ICD-10) Herpes zoster (05/11/13) ?B02.9 - Zoster without complications (ICD-10) Hematuria ?R31.9 - Hematuria, unspecified (ICD-10) Diverticulosis of sigmoid colon ?K57.30 - Diverticulosis of large intestine without perforation or abscess without bleeding (ICD-10) Obstructive sleep apnea syndrome (02/19/10) ?G47.33 - Obstructive sleep apnea (adult) (pediatric) (ICD-10) Fibromyalgia (10/20/09) ?M79.7 - Fibromyalgia (ICD-10) Depression (10/20/09) ?F32.A - Depression, unspecified (ICD-10) Coronary artery disease ?I25.10 - Atherosclerotic heart disease of [place] coronary artery without angina pectoris (ICD-10) Cerebrovascular accident (CVA) ?I63.9 - Cerebral infarction, unspecified (ICD-10) 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 (ICD-10) History of coronary angiogram ?Z98.890 - Other specified postprocedural states (ICD-10) Actinic keratitis ?H16.139 - Photokeratitis, unspecified eye (ICD-10) COVID ?U07.1 - COVID-19 (ICD-10) RUQ pain ?R10.11 - Right upper quadrant pain (ICD-10) Normal cardiac stress test Diplopia ?H53.2 - Diplopia (ICD-10) Cerebellar infarction ?I63.9 - Cerebral infarction, unspecified (ICD-10) Brainstem infarction ?I63.9 - Cerebral infarction, unspecified (ICD-10) Surgical History (Updated 06/06/23 @ 16:18 by Gayathri Lawton MD) 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) ?Z96.652 - Presence of left artificial knee joint (ICD-10) History of herniorrhaphy ?Z98.890 - Other specified postprocedural states (ICD-10) ?Z87.19 - Personal history of other diseases of the digestive system (ICD-10) Tubal ligation status (10/20/09) ?Z98.51 - Tubal ligation status (ICD-10) History of tonsillectomy (10/20/09) ?Z90.89 - Acquired absence of other organs (ICD-10) S/P right colectomy (10/20/09) ?Z90.49 - Acquired absence of other specified parts of digestive tract (ICD-10) History of varicose vein ligation and stripping (10/20/09) ?Z98.890 - Other specified postprocedural states (ICD-10) History of incisional hernia repair ?Z98.890 - Other specified postprocedural states (ICD-10) ?Z87.19 - Personal history of other diseases of the digestive system (ICD-10) History of colonoscopy ?Z98.890 - Other specified postprocedural states (ICD-10) History of colectomy ?Z90.49 - Acquired absence of other specified parts of digestive tract (ICD-10) History of cholecystectomy ?Z90.49 - Acquired absence of other specified parts of digestive tract (ICD-10) History of arthroscopic knee surgery (04/05/22) ?Z98.890 - Other specified postprocedural states (ICD-10) Family History Father Atherosclerosis Hyperlipidemia Mother Colon cancer Parkinson's disease Brother Colon cancer Family/Other Hyperlipidemia Social History (Updated 06/06/23 @ 16:17 by Gayathri Lawton MD) Narrative: Lives with in [place]. 3 children. 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 Former cigarette smoker (quit in 1985), social ETOH use, no illicit drug use What is your current living situation?: I presently have a place to live Problems where you live: no known problems In the past 12 months, utilities in danger of being shut off: no In the past 12 mos, have been you worried that your food would run out before you had money to buy more?: never true In the past 12 mos, the food you bought just didn't last and you didn't have money to buy more?: never true Smoking Status: Former smoker What tobacco products do you use: cigarettes Years smoked: 15 Smoking quit date/years: >15 years ago Do you use any of these nicotine containing products: None How often do you have a drink containing alcohol: 2-3 times a week Alcohol type: wine and hard liquor How many standard drinks containing alcohol do you have on a typical day: 1 or 2 How often do you have six or more drinks on one occasion: Never AUDIT-C Alcohol total score: 3 Non-prescribed substance use: denies use Caffeine: Yes (coffee, 3-4 cups/day) How often does anyone, including family, friends and others, physically hurt you: never How often does anyone, including family, friends and others, insult or talk down to you: never How often does anyone, including family, friends and others, threaten you with harm: never How often does anyone, including family, friends and others, scream or curse at you: never Meds Home Medications and Allergies Home Medications Medication Instructions Recorded Confirmed Type acetaminophen 500 mg tablet 1,000 mg PO Q6H PRN 04/13/22 06/06/23 History betamethasone, augmented 0.05 % 1 applic topical BID PRN 04/13/22 06/06/23 History topical cream cholecalciferol (vitamin D3) 50 50 mcg PO DAILY 04/13/22 06/06/23 History mcg (2,000 unit) capsule losartan 50 mg tablet 50 mg PO DAILY 04/13/22 06/06/23 History meclizine 25 mg tablet 25 mg PO BID PRN 04/13/22 06/06/23 History metoprolol succinate 25 mg 25 mg PO DAILY 04/13/22 06/06/23 History tablet,extended release 24 hr mupirocin 2 % topical ointment 1 applic topical DAILY PRN 04/13/22 06/06/23 History nitroglycerin 0.4 mg sublingual 0.4 mg sublingual Q5M PRN 04/13/22 06/06/23 History tablet polyethylene glycol 3350 17 17 g PO BID PRN 03/31/23 06/06/23 History gram/dose oral powder clopidogrel 75 mg tablet (Plavix) 75 mg PO DAILY 06/06/23 06/06/23 History ezetimibe 10 mg tablet 10 mg PO DAILY 06/06/23 06/06/23 History finasteride 5 mg tablet 2.5 mg PO DAILY 06/06/23 06/06/23 History hydroxychloroquine 200 mg tablet 200 mg PO BID 06/06/23 06/06/23 History pravastatin 80 mg tablet 80 mg PO HS 06/06/23 06/06/23 History Allergies Allergy/AdvReac Type Severity Reaction Status Date / Time horseradish Allergy Severe Rash Verified 06/06/23 07:53 nitrofurantoin Allergy Intermediate Diarrhea Verified 06/06/23 07:53 [id number] Reductase Allergy Intermediate Muscle Pain Verified 06/06/23 13:45 Inhibitor Sulfa (Sulfonamide Allergy Intermediate Verified 06/06/23 13:45 Antibiotics) lisinopril Allergy Mild dry cough Verified 06/06/23 07:53 celecoxib Allergy Unknown Verified 06/06/23 07:53 Exam Narrative: Exam Narrative: No GEN: Alert and sitting comfortably in bedside chair, nontoxic HEENT: EOMIs bilaterally, no scleral icterus CV: RRR, soft systolic murmur without concerning features R: LCTA bilaterally without concerning wheezing, air movement adequate Ext: wearing Yoandy hose bilaterally Skin: No concerning skin lesions or rashes on exposed skin Neuro: Nonfocal Psych: Appropriate Const: Vital Signs, click to edit/add: Vital Signs - 24 hr 06/06/23 08:35 06/06/23 08:57 06/06/23 09:00 Temperature 97.1 F L Pulse Rate 60 60 58 L Respiratory Rate 16 16 16 Blood Pressure 157/81 H 177/84 H 145/71 H Pulse Oximetry 97 100 100 Oxygen Delivery Me thod Room Air Nasal Cannula Nasal Cannula Oxygen Flow Rate 2 2 06/06/23 09:15 06/06/23 11:56 06/06/23 12:00 Temperature 97 F L Pulse Rate 48 L 64 81 Respiratory Rate 16 10 L 10 L Blood Pressure 116/57 L 99/51 L 99/54 L Pulse Oximetry 98 94 95 Oxygen Delivery Me thod Nasal Cannula Room Air Oxygen Flow Rate 2 06/06/23 12:05 06/06/23 12:10 06/06/23 12:15 Temperature Pulse Rate 55 L 54 L 54 L Respiratory Rate 11 L 20 10 L Blood Pressure 108/58 L 98/53 L 106/66 Pulse Oximetry 91 96 96 Oxygen Delivery Me thod Oxygen Flow Rate 06/06/23 12:20 06/06/23 12:25 Temperature 97.3 F L Pulse Rate 51 L 50 L Respiratory Rate 12 14 Blood Pressure 112/57 L 109/60 Pulse Oximetry 94 96 Oxygen Delivery Me thod Room Air Oxygen Flow Rate Assessment and Plan Assessment and plan (1) Status post right knee replacement: Problem comment: - Dr. Thomas, 06/06/23 Status: Acute (2) Coronary artery disease: Problem comment: - s/p NSTEMI with PCI to mid-LAD in 2016 - recurrent CP in 09/30, stress echo 11/01/22 was + for ischemia involving mid/apical anterior and anteroseptal nj - coronary angiography on 11/2022 without evidence of obstructive CAD - on statin, Plavix, BB, ARB - sees Cardiology regularly Status: Acute Plan - pain management and prophylaxis per orthopedic surgery team - continue home medications for comorbidities - anticipate routine postoperative course
--- NOTE | 2023-06-06 18:17 | PC.NURSE ---
Patient arrived to Med/Surg at 1230. Transferring with assist of 2. Pt had an incontinent urine episode when standing up with PT. Currently toileting with bedside commode. Dressing to right knee CD&I. Pt rated pain in right knee between 2-01/17. Scheduled Tylenol and PRN Oxycodone effective. Cryocuff applied to right knee. Tolerating regular diet. Ate independently. VSS.
--- NOTE | 2023-06-06 19:05 | PC.NURSE ---
Daryn scanned patient which showed 650mL. Pt voided on toilet afterwards. 1000mL urine output.
[2023-06-06] MEDS: SENNOSIDES 1 TAB TABLET 2 TAB PO (21:21)
[2023-06-06] MEDS: ASPIRIN 81 MG TABLET EC PO (21:21)
[2023-06-07 03:20] VITALS: BP 141/76; PULSE 61; RESP 18; TEMP 35.9; O2SAT 99
[2023-06-07] MEDS: ACETAMINOPHEN 500 MG TABLET 1000 MG PO ×2 (03:23→08:46)
[2023-06-07] MEDS: OXYCODONE 5 MG TABLET PO ×2 (03:23→07:45)
--- NOTE | 2023-06-07 05:04 | PC.NURSE ---
[id number]: Patient pleasant and cooperative with cares. Pain controlled w/PRN Oxycodone. Cryo cuff to op site. CMS intact. Dressing to R.knee C/D/I. Denies N/V. Eating and voiding.
[2023-06-07 06:22] LABS: Basophils Percent Auto 0.1 % (0.0-3.0); Hematocrit 39.5 % (33.0-51.0); Hemoglobin* 12.9 gm/dL (12.0-16.0); Immature Granulocytes Pct Auto 0.3 %; Lymphocytes Percent Auto 7.1 % (20-44); Mean Corpuscular HGB Conc 33 gm/dL (32-36); Mean Corpuscular Hemoglobin 31 pg (26-34); Mean Corpuscular Volume 93 fL (80-100); Monocytes Percent Auto 4.5 % (0.0-11.0); Platelet Count* 227 K/uL (140-440); RDW Coefficient of Variation % 13.1 % (11.5-15.5); Red Blood Count 4.23 m/uL (4.00-5.20); White Blood Count* 11.92 K/uL (4.50-11.00)
[2023-06-07 06:25] LABS: Slide Review Reflex No
[2023-06-07 06:42] LABS: Sodium* 137 mmol/L (135-149)
[2023-06-07 06:43] LABS: Potassium* 4.7 mmol/L (3.6-5.1)
[2023-06-07 06:46] LABS: Blood Urea Nitrogen* 13 mg/dL (7-30); Creatinine* 0.6 mg/dL (0.5-1.5); Est. Creatinine Clearance* 47.27; Estimated Glomerular Filt Rate 94 ml/min
[2023-06-07 07:15] VITALS: BP 119/57; PULSE 67; RESP 18; TEMP 36.4; O2SAT 99
--- NOTE | 2023-06-07 07:21 | PM.ORPN ---
Subjective Subjective Date Seen: 06/07/23 Principal diagnosis: Status postop day 1 right total knee arthroplasty Interval history: Patient reports doing well. No acute events over night. Pain managed with scheduled and PRN medications, ice. She had her left knee replaced 2 years ago, April. DVT prophylaxis: Plavix, bilateral knee high Yoandy stockings, SCDs, walking. Denies fevers, chills, aches, N/V, CP, SOB/BRAN, or lightheadedness. Ortho Exam Narrative Exam Narrative: -Patient appears comfortable; no apparent acute distress -Alert and oriented times 3 -Operative knee mildly swollen; soft tissues supple; no ecchymosis; no erythematous streaking Warmth appropriate -Surgical dressing clean, dry, intact; no drainage -Bilateral calfs soft; no significant swelling, edema, erythema, discoloration, warmth, or palpable cords. Mild tender right calf -2+ DP/PT pulses, intact dermatomes and myotomes distally (5/5 strength) Const Vital Signs, click to edit/add: Vital Signs - 24 hr 06/06/23 08:35 06/06/23 08:57 06/06/23 09:00 Temperature 97.1 F L Pulse Rate 60 60 58 L Pulse Rate [Pulse Oximeter] Respiratory Rate 16 16 16 Blood Pressure 157/81 H 177/84 H 145/71 H Blood Pressure [Right Arm] Pulse Oximetry 97 100 100 Oxygen Delivery Method Room Air Nasal Cannula Nasal Cannula Oxygen Flow Rate 2 2 06/06/23 09:15 06/06/23 11:56 06/06/23 12:00 Temperature 97 F L Pulse Rate 48 L 64 81 Pulse Rate [Pulse Oximeter] Respiratory Rate 16 10 L 10 L Blood Pressure 116/57 L 99/51 L 99/54 L Blood Pressure [Right Arm] Pulse Oximetry 98 94 95 Oxygen Delivery Method Nasal Cannula Room Air Oxygen Flow Rate 2 06/06/23 12:05 06/06/23 12:10 06/06/23 12:15 Temperature Pulse Rate 55 L 54 L 54 L Pulse Rate [Pulse Oximeter] Respiratory Rate 11 L 20 10 L Blood Pressure 108/58 L 98/53 L 106/66 Blood Pressure [Right Arm] Pulse Oximetry 91 96 96 Oxygen Delivery Method Oxygen Flow Rate 06/06/23 12:20 06/06/23 12:25 06/06/23 12:30 Temperature 97.3 F L 95.5 F L Pulse Rate 51 L 50 L 70 Pulse Rate [Pulse Oximeter] Respiratory Rate 12 14 18 Blood Pressure 112/57 L 109/60 Blood Pressure [Right Arm] 108/55 L Pulse Oximetry 94 96 Oxygen Delivery Method Room Air Room Air Oxygen Flow Rate 06/06/23 12:45 06/06/23 13:00 06/06/23 13:15 Temperature 95.9 F L 95.2 F L Pulse Rate Pulse Rate [Pulse Oximeter] 93 104 H 85 Respiratory Rate 18 18 18 Blood Pressure Blood Pressure [Right Arm] 121/63 120/67 110/64 Pulse Oximetry 99 93 94 Oxygen Delivery Method Room Air Room Air Room Air Oxygen Flow Rate 06/06/23 13:30 06/06/23 14:00 06/06/23 14:30 Temperature 95.4 F L 95.4 F L 95.7 F L Pulse Rate Pulse Rate [Pulse Oximeter] 68 82 94 Respiratory Rate 18 Blood Pressure Blood Pressure [Right Arm] 106/59 L 104/55 L 128/68 Pulse Oximetry 95 98 96 Oxygen Delivery Method Room Air Room Air Room Air Oxygen Flow Rate 06/06/23 15:00 06/06/23 15:30 06/06/23 16:30 Temperature 96.2 F L 96.0 F L Pulse Rate Pulse Rate [Pulse Oximeter] 78 73 Respiratory Rate 16 16 Blood Pressure Blood Pressure [Right Arm] 109/71 139/50 L Pulse Oximetry 95 95 95 Oxygen Delivery Method Room Air Room Air Oxygen Flow Rate 06/06/23 17:30 06/06/23 18:30 06/06/23 19:56 Temperature 96.0 F L 96.1 F L 96.4 F L Pulse Rate Pulse Rate [Pulse Oximeter] 59 L 101 H 59 L Respiratory Rate 16 16 18 Blood Pressure Blood Pressure [Right Arm] 121/77 141/71 H 140/74 H Pulse Oximetry 98 98 98 Oxygen Delivery Method Room Air Room Air Room Air Oxygen Flow Rate 2 06/06/23 23:14 06/07/23 03:20 Temperature 96.3 F L 96.6 F L Pulse Rate Pulse Rate [Pulse Oximeter] 61 61 Respiratory Rate 16 18 Blood Pressure Blood Pressure [Right Arm] 135/64 141/76 H Pulse Oximetry 97 99 Oxygen Delivery Method Room Air Room Air Oxygen Flow Rate Assessment and Plan Assessment and plan (1) Status post right knee replacement: Problem details: - Dr. Thomas, 06/06/23 Status: Acute (2) Coronary artery disease: Problem details: - s/p NSTEMI with PCI to mid-LAD in 2016 - recurrent CP in 09/30, stress echo 11/01/22 was + for ischemia involving mid/apical anterior and anteroseptal nj - coronary angiography on 11/2022 without evidence of obstructive CAD - on statin, Plavix, BB, ARB - sees Cardiology regularly Status: Acute Plan - Complete 23 hour perioperative antibiotics. - PT/OT consult for education and assistance. - Social work consult for discharge planning - Prescribed analgesics as needed - DVT prophylaxis: Plavix, bilateral knee high Yoandy Hose stockings and SCDs. She received 81 mg aspirin yesterday evening 06/06/2023; this order has since been canceled prior to receiving morning does on 06/07/2023 - Anticipation is for discharge to home with spouse 06/07/2023 if the patient remains medically stable, pain is controlled, and they are safe with mobilization.
[2023-06-07] MEDS: SENNOSIDES 1 TAB TABLET 2 TAB PO (07:44)
[2023-06-07] MEDS: CEFAZOLIN 2 GM in 0.9 % SODIUM CHLORIDE Mini-bag 100 ML IVPB (07:45)
--- NOTE | 2023-06-07 09:16 | SUR.OPER ---
INTERNET UNAVAILABLE 06/06/2023 AROUND 12:00. FINISHED EMAR CHARTING 06/07/2023.
--- NOTE | 2023-06-07 11:05 | PM.IMPN1 ---
Subjective Interval history: Find why patient Ms. Buck states she does not feel well. She has a fever chills nausea vomiting and diarrhea why is this not going directly into my note. I think I will need to talk with them because its not quite working right I will build to [id number] Exam Const: Vital Signs, click to edit/add: Vital Signs - 24 hr 06/06/23 11:56 06/06/23 12:00 06/06/23 12:05 Temperature 97 F L Pulse Rate 64 81 55 L Pulse Rate [Pulse Oximeter] Respiratory Rate 10 L 10 L 11 L Blood Pressure 99/51 L 99/54 L 108/58 L Blood Pressure [Ri ght Arm] Pulse Oximetry 94 95 91 Oxygen Delivery Me thod Room Air Oxygen Flow Rate 06/06/23 12:10 06/06/23 12:15 06/06/23 12:20 Temperature Pulse Rate 54 L 54 L 51 L Pulse Rate [Pulse Oximeter] Respiratory Rate 20 10 L 12 Blood Pressure 98/53 L 106/66 112/57 L Blood Pressure [Ri ght Arm] Pulse Oximetry 96 96 94 Oxygen Delivery Me thod Oxygen Flow Rate 06/06/23 12:25 06/06/23 12:30 06/06/23 12:45 Temperature 97.3 F L 95.5 F L 95.9 F L Pulse Rate 50 L 70 Pulse Rate [Pulse Oximeter] 93 Respiratory Rate 14 18 18 Blood Pressure 109/60 Blood Pressure [Ri ght Arm] 108/55 L 121/63 Pulse Oximetry 96 99 Oxygen Delivery Me thod Room Air Room Air Room Air Oxygen Flow Rate 06/06/23 13:00 06/06/23 13:15 06/06/23 13:30 Temperature 95.2 F L 95.4 F L Pulse Rate Pulse Rate [Pulse Oximeter] 104 H 85 68 Respiratory Rate 18 18 Blood Pressure Blood Pressure [Ri ght Arm] 120/67 110/64 106/59 L Pulse Oximetry 93 94 95 Oxygen Delivery Me thod Room Air Room Air Room Air Oxygen Flow Rate 06/06/23 14:00 06/06/23 14:30 06/06/23 15:00 Temperature 95.4 F L 95.7 F L Pulse Rate Pulse Rate [Pulse Oximeter] 82 94 Respiratory Rate 18 Blood Pressure Blood Pressure [Ri ght Arm] 104/55 L 128/68 Pulse Oximetry 98 96 95 Oxygen Delivery Me thod Room Air Room Air Oxygen Flow Rate 06/06/23 15:30 06/06/23 16:30 06/06/23 17:30 Temperature 96.2 F L 96.0 F L 96.0 F L Pulse Rate Pulse Rate [Pulse Oximeter] 78 73 59 L Respiratory Rate 16 16 16 Blood Pressure Blood Pressure [Ri ght Arm] 109/71 139/50 L 121/77 Pulse Oximetry 95 95 98 Oxygen Delivery Me thod Room Air Room Air Room Air Oxygen Flow Rate 06/06/23 18:30 06/06/23 19:56 06/06/23 23:14 Temperature 96.1 F L 96.4 F L 96.3 F L Pulse Rate Pulse Rate [Pulse Oximeter] 101 H 59 L 61 Respiratory Rate 16 18 16 Blood Pressure Blood Pressure [Ri ght Arm] 141/71 H 140/74 H 135/64 Pulse Oximetry 98 98 97 Oxygen Delivery Me thod Room Air Room Air Room Air Oxygen Flow Rate 2 06/07/23 03:20 06/07/23 07:15 06/07/23 07:15 Temperature 96.6 F L 97.6 F Pulse Rate Pulse Rate [Pulse Oximeter] 61 67 67 Respiratory Rate 18 18 18 Blood Pressure Blood Pressure [Ri ght Arm] 141/76 H 119/57 L Pulse Oximetry 99 99 Oxygen Delivery Me thod Room Air Room Air Oxygen Flow Rate Labs Labs: Laboratory Results - last 24 hr 06/07/23 05:56 WBC 11.92 H RBC 4.23 Hgb 12.9 Hct 39.5 MCV 93 MCH 31 MCHC 33 RDW Coeff of Hollis 13.1 Plt Count 227 Neut % (Auto) 88.0 H Lymph % (Auto) 7.1 L Bailey % (Auto) 4.5 Eos % (Auto) 0.0 Baso % (Auto) 0.1 Neut # (Auto) 10.50 H Lymph # (Auto) 0.80 L Bailey # (Auto) 0.50 Eos # (Auto) 0.00 Baso # (Auto) 0.00 Abs Immat Gran (auto) 0.00 Imm/Tot Granulo (auto) 0.3 Sodium 137 Potassium 4.7 BUN 13 Creatinine 0.6 Estimated Creat Clear 47.27 Estimated GFR 94
--- NOTE | 2023-06-07 11:51 | PC.NURSE ---
VSS AND AFEBRILE. LS CLEAR AND BOWEL SOUNDS ACTIVE. TOLERATING REGULAR DIET WITH NO C/O N/V. RIGHT KNEE PAIN CONTROLLED WITH PRN OXYCODONE AND SCHEDULED TYLENOL. UP WITH A1, WALKER AND GAIT BELT. SALINE LOCK DC'D AND REVIEWED CRYOCUFF USE WITH PATIENT. REVIEWED DC INSTRUCTIONS WITH PATIENT AND SHE DENIES QUESTIONS OR CONCERNS. PATIENT DC'D HOME WITH SPOUSE.
--- NOTE | 2023-06-08 07:40 | P.ORPRC_ITS ---
Procedure Note Date of procedure: 06/06/23 Procedure: PREOPERATIVE DIAGNOSIS: 1. Right knee osteoarthritis, primary, severe POSTOPERATIVE DIAGNOSIS: 1. Right knee osteoarthritis, primary, severe PROCEDURE: 1. Right total knee arthroplasty SURGEON: Song Thomas MD. PERFORMANCE IMPROVEMENT MANAGER: RAFAT Tijerina - Of note, a skilled housekeeper and laundry assistant was critical for this case to aid in patient positioning, tissue retraction, limb manipulation/positioning, and closure. ANESTHESIA: Spinal anesthetic IMPLANTS: DePuy J&J all cemented TKA - Attune PS femur size 6 regular, size 5 tibia, 5 poly spacer, 30 mm patella TOURNIQUET: 90 min at 300 torr EBL: 50 ml COMPLICATIONS: None evident INDICATIONS: The patient is a pleasant 77-year-old female who has experienced severe right knee pain and difficulty bearing weight. Workup included x-rays which revealed severe osteoarthrosis in the knee. Given the deformity, the dysfunction, and the pain, as well as the failure of nonoperative management, recommendation was made for surgery. FINDINGS: Full-thickness chondral loss diffusely through the lateral and patellofemoral compartments. Degenerative meniscus pathology both compartments. Large effusion upon entering the joint. DESCRIPTION OF PROCEDURE: Following a thorough discussion of risks, benefits, and alternatives consent was obtained and the right knee was marked. The patient was brought to the operating room and placed supine on the operating table. Induction of anesthesia was undertaken. 2 g IV Ancef and 1 g tranexamic acid was administered within 1 hr of incision preoperatively. Proper time-out was performed identifying proper patient, site, procedure. The operative extremity was prepped and draped in the appropriate sterile fashion using ChloraPrep after the patient was positioned supine with all bony prominences w ell padded. A longitudinal, anterior, midline skin incision was made starting approximately 3cm proximal to the superior pole of the patella and advanced distal to the tibial tubercle. A median parapatellar arthrotomy was created. A medial subperiosteal sleeve was created with knife, tay elevator and curved osteotome. The retropatellar fatpad was resected and the synovium in the suprapatellar pouch excised to visualize the anterior femoral cortex. Femoral preparation was performed via an intramedullary guide. Step drill allowed access into the femoral canal. The distal cutting guide was placed with 5? of valgus and 10 mm cut on the distal femur. Femur was sized using a posterior referencing guide in 3? of external rotation. This found have a best fit with the sizing noted above. The 4 in 1 cutting block was then placed, and the distal femur shaped accordingly. The box cut was then created and the trial implant inserted to confirm appropriate fit. We turned our attention to the proximal tibia. Extramedullary guide was utilized for cutting with the goal of being 90 degree cut from the mechanical axis of the tibia in the varus/valgus plane utilizing tibial crest as the primary alignment. Initially a 3 mm resection was performed from the medial tibial plateau. An additional 2 mm to require resection off the tibia to achieve appropriate gaps. Ultimately, balancing was achieved in both flexion and extension in both varus and valgus. The knee was able to achieve full extension as well comfortably. The patella was initially measured and found have a thickness of 24 mm. It was resected back to approximately 13.5 mm. It was sized to be a best fit with as noted above. This was drilled, trial placed. All trials were placed and found to have an excellent stability and balance. At this stage, trial implants were removed, the knee was thoroughly irrigated with normal saline, and the cement was mixed. After irrigation, the knee was thoroughly dried, and cement placed, with the real tibial and femoral implants placed along with the patella. Trial poly spacer was placed and confirmed to have excellent range of motion and full extension, and the real poly spacer opened and inserted. All extra cement was removed, and a 3 min Betadine soak performed. Finally, a final irrigation round with normal saline was performed. Closure performed with 0 Vicryl and #0 Stratafix for the quad tendon/retinaculum. 2-0 Vicryl for the subcutaneous and 4-0 Stratafix for subcuticular closure. Dressings were applied and the patient was awoken from anesthesia after the tourniquet deflated and transferred the PACU in stable condition. A skilled housekeeper and laundry assistant was critical for this case to aid in patient positioning, tissue retraction, bone exposure, limb manipulation/positioning, patient safety, and closure. PLAN: 1. Weight bear as tolerated operative extremity. 2. 23 hr perioperative antibiotics. 3. Ice. 4. PT/OT consults for ambulation assistance/mobility education. 5. Social work consult for discharge planning. 6. DVT prophylaxis with at SCDs, Yoandy Hose, and aspirin twice daily.
== END 2023-06-07 11:23 | disposition home or self-care (01) ==
LOC: OR 07:22 → MEDSURG 07:24
PROVIDERS: PCP Physician Assistant Medical; Visit Provider Orthopaedic Surgery Sports Medicine
PROC: (CPT 27447; principal; 2023-06-06 09:30)
DX: M17.11 Unilateral primary osteoarthritis, right knee (principal); G89.18 Other acute postprocedural pain; G47.33 Obstructive sleep apnea (adult) (pediatric)
CPT/HCPCS: 27447; 01402; 36415; 51798; 64447; 64454; 73560; 76942; 82565; 84132; 84295; 84520; 85025; 97110; 97116; 97161; 97165; 97535; 99100; A9270; C1776; J0690; J1100; J2250; J2704; J2795; J3010; J7120

== ENCOUNTER 2023-08-15 13:29 | Outpatient (CLI) | payer MEDICARE, OTHER, SELFPAY ==
--- NOTE | 2023-08-15 13:40 | CRLHL7_ITS ---
For Patients: As a result of the Century Cures Act, medical imaging exams and procedure reports are released immediately into your electronic medical record. You may view this report before your referring provider. If you have questions, please contact your health care provider. BILATERAL SCREENING MAMMOGRAM WITH COMPUTER-AIDED DETECTION AND TOMOSYNTHESIS TECHNIQUE: CC and MLO views were obtained. These mammographic images have been obtained using full-field digital technique. These mammographic images were interpreted with the benefit of computer-aided detection. Breast Tomosynthesis was used in this interpretation. COMPARISON FILM: 07/30/22, 06/29/21, 06/27/20. FINDINGS: There are scattered areas of fibroglandular density IMPRESSION: There is no radiographic evidence for malignancy. ASSESSMENT: BI-RADS Category 1: Negative RECOMMENDATION: Routine screening mammogram in 1 year. A lay language report of this examination will be provided to the patient. David Zambrano M.D. Diagnostic Radiologist [email or web address] ZANDER/Dictated by: David Zambrano MD @ 08/16/2023 8:36:00 AM (Electronically Signed)
== END 2023-08-15 13:30 | disposition home or self-care (01) ==
LOC: MAMMO 13:31
PROVIDERS: PCP Physician Assistant Medical; Visit Provider Physician Assistant Medical
DX: Z12.31 Encounter for screening mammogram for malignant neoplasm of breast (principal)
CPT/HCPCS: 77063; 77067

== ENCOUNTER 2023-08-18 13:00 | Outpatient (RCR) | payer MEDICARE, OTHER, SELFPAY ==
--- NOTE | 2023-05-23 13:55 | PT.OPE ---
[facility] PT [facility] Out[facility] Eval Start: 05/23/23 11:27 Freq: Status: Active Protocol: Document 05/23/23 13:53 PINGT (Rec: 05/23/23 13:55 CJT [id number]) E-signed By Ari Madrigal PT Physical Therapy Outpatient Evaluation Insurance Information Recert Due Date 08/21/23 Insurance Name Medicare B Medical Diagnosis Z96.651 - R TKA Treating Diagnosis Z96.651 - R TKA Referring Song Chow MD Subjective Subjective Pt presents for pre-op evaluation for R TKA (DOS: ). Pt has had ongoing R knee pain since her L TKA approx 2 years ago. Is ready to pursue TKA at this time. Pt lives with her Ralf in a multilevel home: 2 steps to enter from garage with handrail on R, Bedroom is upstairs with approx 12 steps, handrails on both sides. Pts bathroom and kitchen are on main floor. Walk-in shower with grab bars, standard toilet seat. Pts will be available after surgery for rides to therapy and any assistance that she may need. Date of Last Physician Visit 05/17/23 Current Work Status Retired Preferred Name Oswaldo Precautions Therapy Limitations/Systems Review Not Limited Objective Other/Pertinent Objective R knee AROM: 0-120 L knee AROM: 0-124 R quad: 5/5 MMT R hamstrin/5 MMT Assessment Assessment/Impression Patient presents for their pre -op therapy visit for R TKA scheduled for 06/06/23. Pre- surgical consultation was completed including education on expected post-surgical swelling/bruising/pain, appropriate use of pain medication, icing to reduce pain/swelling, exercises following surgery, therapy outcomes and safety in and outside his home. Pt completed several reps of each of the exercises issued in his post- TKA folder and shows good understanding of these. I did encourage the patient to practice all of these exercises at least two more times prior to surgery as well as read each of the pages on post-surgical expectations and safety and ambulation expectations following their surgery. All questions were answered to the patient's satisfaction. Skilled PT services are medically necessary to address deficits and return patient to highest level of function. Recommend physical therapy sessions 2 reducing to 1/week for 12 weeks, beginning 06/08/2023. Pt agrees with this plan. Printout of HEP was given for I completion and pt gives verbal understanding of each exercise. Primary Functional Limitations Walking, stairs, transfers Plan of Care Rehabilitation Potential Excellent Physical Therapy Goals STG - To be completed in 2-3 weeks: 1. Pt will report consistent use of ice as well as elevation of surgical limb while resting to reduce inflammation and swelling. 2. Pt will demonstrate 90 degrees of knee flexion on surgical limb to reduce risk of contracture development and progress through rehabilitation as expected. 3. Pt to show appropriate use of all AD's with minimal gait deviations and no LOB with all ambulation to reduce risk of falls and restore normal gait mechanics. LTG - To be completed in 8-12 weeks: 1. Pt to be I with HEP so that they may I manage progression of symptoms. 2. Pt will demonstrate 120 degrees knee flexion on surgical limb so that they may descend steps without restrictions in ROM. 3. Pt will perform 10+ squats with good control over medial/ lateral deviation of knees to show improved functional strength to assist with transfers. 4. Pt will demonstrate 5/5 MMT knee flexion/extension of surgical limb to provide greater support to knee joint and allow for ease of ambulation. 5. Pt will ambulate 500ft with normal gait mechanics so that she may return to walking for pleasure and exercise while maintaining low stress on B LEs. Treatment Plan/Direct Interventions Electrical Stimulation,Gait Training,Ice/Cold/ Vasopneumatic,Joint Mobilization,Manual Therapy, Neuromuscular Re-ed,Self-Care/ Home Management,Therapeutic Activities,Therapeutic Exercises Frequency/Duration 2 reducing to every other week for 12 weeks Patient Will Be Discharged From Therapy Completion of LTG(s),Skills Plateau,Independent w/HEP, Independently Progressing Evaluation Billing Untimed Code Treatment Minutes 40 PT Eval No Charge No Complexity Low Certification Information Initial Certification Date 05/23/23 Ending Certification Date 08/21/23 Provider Signature Shows Agreement With POC & Medical Necessity Physician Signature & Date Requested Please Sign/Date Here Physician Comment/Change : Physician NPI Number #
--- NOTE | 2023-07-18 14:12 | PT.OPDN ---
PT [facility] Outpatient Daily Note PT [facility] Outpatient Daily Note Start: 05/23/23 11:27 Freq: Status: Active Protocol: Document 07/18/23 13:17 CJT (Rec: 07/18/23 14:12 CJT [id number]) E-signed By Ari Madrigal, PT PT OP Daily Progress Note Visit Information Note Type Recert/Progress Note Visit Number 10 Insurance Authorized Visits 100 Physician Authorized Visits eval and treat Insurance Information Recert Due Date 08/21/23 Insurance Name Medicare B Medical Diagnosis Z96.651 - R TKA Treating Diagnosis Z96.651 - R TKA Referring Song Chow MD Subjective Subjective Pt doing well. Some pain with stretching on the medial side of her R knee when in full extension. Preferred Name Oswaldo Home Exercise Home Exercise Comments [id number] Objective Other/Pertinent Objective R knee AROM: 0-118 R quad: 5/5 MMT R hamstrin/5 MMT Patient Instructed in Risks/Benefits Yes Therapeutic Exercise Therapeutic Exercise Minutes (minutes) 50 Therapeutic Exercise: To Restore Bike - 9 minutes Functional Status Squats with hands at rail 3 x 15, 12, 10 [id number]-[id number] 3 x 10 Hamstring curl machine, 30# 3 x 12/10/8 Knee extension machine 30# x 12, 40# 2 x 10, 8 8 step-ups 2 x 10 ea Stairs 3 x 16 Sled push/pull, 65# 2 x 50 ft ea Arm bar stretch x 60 Knee extension stretch with OP x 60 Manual Therapy Techniques Manual Therapy Minutes (minutes) 6 Manual Therapy Techniques STM to R gastroc, hamstring, posterior knee joint capsule to reduce tissue tension and improve extensibility. Treatment Minutes Timed Code Treatment Minutes 56 Total Treatment Time 56 Billing Units Manual Therapy Units 1 Therapeutic Exercise Units 3 Assessment/Impression Assessment/Impression Oswaldo has progressed very well during her time in therapy thus far. She demonstrates 118 degrees R knee flexion this date. Quad strength is full and hamstring strength is 4/5 MMT this date. Will continue to progress her strengthening exercises here in the clinic. I have emphasized the importance of long duration stretching with Oswaldo again today. While she is able to achieve full extension of her R knee, it does require some initial stretching to get there. We will continue to focus on her ROM until her R knee consistently measures 0- 120+ degrees. At this time I have no major concerns for Oswaldo. Next week she will return for 2 therapy sessions and we will then regress to 1/ week or every other week. Recommend continued therapy services to address deficits and return pt to highest level of function. Plan of Care Physical Therapy Goals STG - To be completed in 2-3 weeks: 1. Pt will report consistent use of ice as well as elevation of surgical limb while resting to reduce inflammation and swelling. MET 2. Pt will demonstrate 90 degrees of knee flexion on surgical limb to reduce risk of contracture development and progress through rehabilitation as expected. MET 3. Pt to show appropriate use of all AD's with minimal gait deviations and no LOB with all ambulation to reduce risk of falls and restore normal gait mechanics. MET LTG - To be completed in 8-12 weeks: 1. Pt to be I with HEP so that they may I manage progression of symptoms. 2. Pt will demonstrate 120 degrees knee flexion on surgical limb so that they may descend steps without restrictions in ROM. 3. Pt will perform 10+ squats with good control over medial/ lateral deviation of knees to show improved functional strength to assist with transfers. MET 4. Pt will demonstrate 5/5 MMT knee flexion/extension of surgical limb to provide greater support to knee joint and allow for ease of ambulation. 5. Pt will ambulate 500ft with normal gait mechanics so that she may return to walking for pleasure and exercise while maintaining low stress on B LEs. Daily Plan of Care Continue per POC Recertification Information Provider Signature Shows Agreement With POC & Medical Necessity
== END 2023-08-18 16:41 | disposition home or self-care (01) ==
PROVIDERS: PCP Physician Assistant Medical; Visit Provider Orthopaedic Surgery Sports Medicine
DX: M17.11 Unilateral primary osteoarthritis, right knee (principal); Z96.651 Presence of right artificial knee joint; Z51.89 Encounter for other specified aftercare
CPT/HCPCS: 97016; 97032; 97110; 97140; 97161; 97164

== ENCOUNTER 2023-11-24 10:29 | Outpatient (CLI) | payer MEDICARE, OTHER, SELFPAY ==
--- OUTSIDE RECORDS SUMMARY | 2023-11-24 10:44 | XMS_ITS | Referral Summary ---
Author Name Unknown Organization [place] Address [facility] [place] [address] Care Team Providers Care Cast Iron Dipper Name Role Phone Ryanne Gardner MD Primary Care Provider [phone] Medications No known medications Resolved Problems Problem Noted Date Diagnosed Date Resolved Date Chronic idiopathic constipation 03/11/2023 05/24/2023 Pelvic floor dysfunction 03/11/2023 Social History Tobacco Use Types Packs/Day Years Used Date Smoking Tobacco: Never Assessed Adolescent Education Answer Date Record ed Getting School Help Needed Not on file 07/01 Sex and Gender Information Value Date Recorded Sex Assigned at Not on file Gender Identity Not on file Sexual Orientation Not on file Last Filed Vital Signs Vital Sign Reading Time Taken Comments Blood Pressure - - Pulse - - Temperature - - Respiratory Rate - - Oxygen Saturation - - Inhaled Oxygen Concentration - - Weight 84 kg (185 lb 3.2 oz) 01/11/2017 11:00 AM CDT Height 170.2 cm (5' 7.01) 01/11/2017 11:00 AM C DT Body Mass Index 29 01/11/2017 11:00 AM CDT Plan of Treatment Not on file Care Teams Cast Iron Dipper Relationship Specialty Start Date End Date Ryanne Gardner MD REPLACED BY [facility] [address] [place], [place] [id number] PCP - General 10/19/16
--- OUTSIDE RECORDS SUMMARY | 2023-11-24 10:44 | XMS_ITS | Encounter Summary ---
Author Name Unknown Organization [place] Address [facility]ly [facility], later [facility] [place] [address] Care Team Providers Care Manager Outreach Name Role Phone Ryanne Gardner MD Primary Care Provider [phone] Encounter Details Date Type Department Care Team (Latest Contact Info) Description 05/24/2023 10:25 AM CDT Therapy Visit [facility] [address] [facility] [address] [place] [address] [place] [address] [place] [address] Chronic idiopathic constipation (Primary Dx); Pelvic floor dysfunction Social History Tobacco Use Types Packs/Day Years Used Date Smoking Tobacco: Never Assessed Sex and Gender Information Value Date Recorded Sex Assigned at Not on file Gender Identity Not on file Sexual Orientation Not on file COVID-19 Exposure Response Date Recorded In the last 10 days, have yo u been in contact with someone who was confirmed or suspected to have Coronavirus/COVID-19? No / Unsure 05/24/2023 10:17 AM CDT documented as of this encounter Progress Notes * Yaritza Zimmerman, PT - 05/24/2023 11:04 AM CDT 05/24/23 0500 Appointment Info Signing clinician's name / credentials Yaritza Zimmerman, PT, OCS Total/Authorized Visits EPIC 01/12/23 Visits Used 3 Medical Diagnosis constipation PT Tx Diagnosis constipation/pelvic floor dysfunction Other pertinent information [email or web address] Quick Adds Certification Progress Note/Certification Start of Care Date 03/11/23 Onset of illness/injury or Date of Surgery 01/12/23 (order date) Therapy Frequency 2x month Predicted Duration 3 months Certification date from 03/11/23 Certification date to 06/08/23 Progress Note Due Date 05/24/23 Progress Note Completed Date 05/24/23 GOALS PT Goals 2 PT Goal 1 Goal Identifier Kegel strength 4 Rationale (for continence throughout the day/night for healthy hygeine) Goal Progress not rechecked today Target Date 05/11/23 PT Goal 2 Goal Identifier bowel emptying Goal Description complete bowel emptying 3-4 x week Rationale (for proper bowel mechanics/emptying) Target Date 05/11/23 Date Met 05/24/23 Subjective Report Subjective Report Will be having R TKA on 06/06/23. On a new medication for something else and feels like more constipation. Also traveled for 2 weeks so wasn't able to do HEP consistently. However, despite that feels overall urinary urge is more controlled. Also bowels feels like can empty for themost part. Objective Measures Objective Measures Objective Measure 1 Objective Measure 1 Objective Measure Rev'd HEP and added core strength. Gave option to do isometric kegels/TA in sitting/supine or standing as her upcoming TKA may present challenges with current HEP. Treatment Interventions (PT) Interventions Therapeutic Procedure/Exercise;Neuromuscular Re-education Therapeutic Procedure/Exercise Therapeutic Procedures: strength, endurance, ROM, flexibillity minutes (40462) 30 PTRx Ther Proc 1 Roll Ins (seated) PTRx Ther Proc 1 - Details Hold 5 secondsPULL IN LOWER ABDOMEN YOU DO KEGEL Zipper exhale as you contract muscles PTRx Ther Proc 2 Roll Outs (seated) PTRx Ther Proc 2 - Details Perform slow and controlled NO BANDPULL IN LOWER ABDOMEN YOU DO KEGELZipper exhale as you contract muscles Skilled Intervention to improved strength of pelvic floor Patient Response/Progress tolerated advanced exercises with no c/o Ther Proc 1 bridge #1 with PF or posterior pelvic tilt if needed Ther Proc 1 - Details 5 sec x20 Therapeutic Activity PTRx Ther Act 1 Toileting Position PTRx Ther Act 1 - Details No Notes Skilled Intervention to facilitate complete emptying of bladder Patient Response/Progress demonstrated techniques correctly Neuromuscular Re-education Neuromuscular re-ed of mvmt, balance, coord, kinesthetic sense, posture, proprioception minutes (44113) 10 PTRx Neuro Re-ed 1 Standing Pelvic Floor with Transverse Abdominus PTRx Neuro Re-ed 1 - Details 10x 1x dayCues to not round shoulders forward Skilled Intervention to facilitate proper recruitment of PF/TA muscles Patient Response/Progress needed cues to avoid rounding shoulders vs TA/kegel set Education Learner/Method Patient;No Barriers to Learning Plan Home program PTRX HEP Plan for next session DC to hEP 3 x week Total Session Time Timed Code Treatment Minutes 40 Total Treatment Time (sum of timed and untimed services) 40 DISCHARGE Reason for Discharge: continue on her own with HEP Equipment Issued: NA Discharge Plan: Patient to continue home program. Referring Provider: Sherin Capellan documented in this encounter Plan of Treatment Not on file documented as of this encounter Visit Diagnoses Diagnosis Chronic idiopathic constipation- Primary Unspecified constipation Pelvic floor dysfunction Pelvic muscle wasting documented in this encounter Care Teams Manager Outreach Relationship Specialty Start Date End Date Ryanne Gardner MD [address] [address] PCP - General 10/19/16 documented as of this encounter
--- OUTSIDE RECORDS SUMMARY | 2023-11-24 10:44 | XMS_ITS | Encounter Summary ---
Author Name Unknown Organization [place] Address [address] [place] [address] Care Team Providers Care Beverage Sales Consultant Name Role Phone Ryanne Gardner MD Primary Care Provider [phone] Encounter Details Date Type Department Care Team (Latest Contact Info) Description 05/24/2023 Travel Social History Tobacco Use Types Packs/Day Years [...] AM CDT documented as of this encounter Plan of Treatment Not on file documented as of this encounter Visit Diagnoses Not on filedocumented in this encounter Care Teams Beverage Sales Consultant Relationship Specialty Start Date End Date Ryanne Gardner MD [facility] [address] [place] [address] PCP - General 10/19/16 documented as of this encounter
--- OUTSIDE RECORDS SUMMARY | 2023-11-24 10:44 | XMS_ITS | Clinical Summary ---
Author Name Unknown Organization [place] Address [address] [place] [address] Care Team Providers Care Seismograph Chief Name Role Phone Ryanne Gardner MD Primary Care Provider [phone] Medications No known medications Resolved Problems Problem [...] 01/11/2017 11:00 AM CDT Plan of Treatment Health Maintenance Due Date Last Done Comments ADVANCE CARE PLANNING 1945 ANNUAL REVIEW OF HM ORDERS 1945 DEXA 1945 GLUCOSE 1945 HEPATITIS C SCREENING 1965 LIPID 1987 ZOSTER IMMUNIZATION (1 of 2) 1997 RSV VACCINE ( & 60+) (1 - 1-dose 60+ series) 2007 FALL RISK ASSESSMENT 2012 MEDICARE ANNUAL WELLNESS VISIT 2012 Pneumococcal Vaccine: 65+ Years (1 of 1 - PCV) 2012 COVID-19 Vaccine ( season) 2023 08/19/2022, 03/05/2022, 03/05/2022, Additional history exists INFLUENZA VACCINE (#1) 2023 , 09/02/2020, 10/20/2012, Additional history exists PHQ-2 (once per calendar year) 2023 DTAP/TDAP/TD IMMUNIZATION (2 - Td or Tdap) 04/10/2024 04/10/2014 HPV IMMUNIZATION Aged Out No longer e ligible based on patient's age to complete this topic IPV IMMUNIZATION Aged Out No longer e ligible based on patient's age to complete this topic MENINGITIS IMMUNIZATION Aged Out No l onger eligible based on patient's age to complete this topic RSV MONOCLONAL ANTIBODY Aged Out No l onger eligible based on patient's age to complete this topic Care Teams Seismograph Chief Relationship Specialty Start Date End Date Ryanne Gardner MD [facility] [address] [place] [address] PCP - General 10/19/16
--- OUTSIDE RECORDS SUMMARY | 2023-11-24 10:45 | XMS_ITS | Encounter Summary ---
Author Name Unknown Organization [place] Address [address] [facility] [place] [address] Care Team Providers Care Olive Pitter Name Role Phone Ryanne Gardner MD Primary Care Provider [phone] Reason for Referral * Rehab Therapy Physical Therapy (Routine: Next available opening) - Pending Review Specialty Diagnoses / Procedures Referred By Simran agustin Referred To Contact Diagnoses Chronic idiopathic constipation Sherin Capellan APRN CNP [facility] [address] [address] Referral ID Status Reason Start Date Expiration Date V isits Requested Visits Authorized [id number] Pending Review 01/12/2023 01/12/2024 1 1 Question Answer Preferred Location: [facility] Scheduling Instructions: If you have not heard from the scheduling office within 2 business days, please call [phone] for [facility], for [place] and [phone] for [place]. Course of Action Evaluation and Treatment Adult or Pediatrics Adult Specialty Services: Pelvic Health Pelvic Health: Constipation Comments Please be aware that coverage of these services is subject to the terms and limitations of your health insurance plan. Call member services at your health plan with any benefit or coverage questions. If you have not heard from the scheduling office within 2 business days, please call [phone] for [facility], for [place] and [phone] for [place]. Encounter Details Date Type Department Care Team (Latest Contact Info) Description 01/12/2023 Transcribe Orders [facility] [address] [place] [address] Sherin Capellan, CUTLET MAKER PORK RETAIL CLIENT SOLUTIONS CONSULTANT [facility] [address] [facility] [address] [place] [address] Chronic idiopathic constipation (Primary Dx) Social History Tobacco Use Types Packs/Day Years Used Date Smoking Tobacco: Never Assessed Sex and Gender Information Value Date Recorded Sex Assigned at Not on file Gender Identity Not on file Sexual Orientation Not on file documented as of this encounter Plan of Treatment Scheduled Referrals Name Type Priority Associated Diagnoses Orde r Schedule Physical Therapy Referral Referral Routine: Next available opening Chronic idiopathic constipation Expected: 01/12/2023 (Approximate), Expires: 01/13/2024 documented as of this encounter Visit Diagnoses Diagnosis Chronic idiopathic constipation- Primary Unspecified constipation documented in this encounter Care Teams Olive Pitter Relationship Specialty Start Date End Date Ryanne Gardner MD [facility] [address] [place] [address] PCP - General 10/19/16 documented as of this encounter
--- OUTSIDE RECORDS SUMMARY | 2023-11-24 10:45 | XMS_ITS | Encounter Summary ---
Author Name Unknown Organization [place] Address [address] [place] [address] Care Team Providers Care Offender Employment Specialist Name Role Phone Ryanne Gardner MD Primary Care Provider [phone] Encounter Details Date Type Department Care Team (Latest Contact Info) Description 03/21/2023 Travel Social History Tobacco Use Types Packs/Day [...] suspected to have Coronavirus/COVID-19? No / Unsure 03/21/2023 1:33 PM CDT documented as of this encounter Plan of Treatment Not on file documented as of this encounter Visit Diagnoses Not on filedocumented in this encounter Care Teams Offender Employment Specialist Relationship Specialty Start Date End Date Ryanne Gardner MD [facility] [address] [place] [address] PCP - General 10/19/16 documented as of this encounter
--- OUTSIDE RECORDS SUMMARY | 2023-11-24 10:45 | XMS_ITS | Encounter Summary ---
Author Name Unknown Organization [place] Address [address] [place] [address] Care Team Providers Care Aerospace Control And Warning Systems Name Role Phone Ryanne Gardner MD Primary Care Provider [phone] Encounter Details Date Type Department Care Team (Latest Contact Info) Description 03/11/2023 Travel Social History Tobacco Use Types Packs/Day [...] suspected to have Coronavirus/COVID-19? No / Unsure 03/11/2023 12:47 PM CDT documented as of this encounter Plan of Treatment Not on file documented as of this encounter Visit Diagnoses Not on filedocumented in this encounter Care Teams Aerospace Control And Warning Systems Relationship Specialty Start Date End Date Ryanne Gardner MD [facility] [address] [place] [address] PCP - General 10/19/16 documented as of this encounter
--- OUTSIDE RECORDS SUMMARY | 2023-11-24 10:45 | XMS_ITS | Encounter Summary ---
Author Name Unknown Organization [place] Address [address] [place] [address] Care Team Providers Care Dam Operator Name Role Phone Ryanne Gardner MD Primary Care Provider [phone] Reason for Visit * Rehab Therapy Physical Therapy (Routine: Next available opening) - Pending Review Specialty Diagnoses / Procedures Referred By Simran agustin Referred To Contact Diagnoses Chronic idiopathic constipation Sherin Capellan APRN CNP [facility] [address] [address] Referral ID Status Reason Start Date Expiration Date V isits Requested Visits Authorized [id number] Pending Review 01/12/2023 01/12/2024 1 1 Encounter Details Date Type Department Care Team (Latest Contact Info) Description 03/11/2023 1:10 PM CDT Therapy Visit [facility] [address] [facility] [address] [place], [place] [address] Sherin Capellan APRN TIER LIFT OPERATOR [facility] [address] [id number] [place] [address] [facility] [address] [place] [address] Pelvic floor dysfunction (Primary Dx); Chronic idiopathic constipation Social History Tobacco Use Types Packs/Day Years [...] PM CDT documented as of this encounter Progress Notes * Yaritza Zimmerman, PT - 04/08/2023 12:38 PM CDT 03/11/23 0500 Appointment Info Signing clinician's name / credentials Yaritza Zimmerman, PT, OCS Total/Authorized Visits EPIC 01/12/23 Visits Used 1 Medical Diagnosis constipation PT Tx Diagnosis constipation/pelvic floor dysfunction Precautions/Limitations Discussed with patient/guardian reason for referral regarding pelvic healthneeds and external/internal pelvic floor muscle examination. Opportunity provided to ask questions and verbal consent for assessment and intervention was given. Other pertinent information [email or web address] Quick Adds Certification Progress Note/Certification Start of Care Date 03/11/23 Onset of illness/injury or Date of Surgery 01/12/23 (order date) Therapy Frequency 2x month Predicted Duration 3 months Certification date from 03/11/23 Certification date to 06/08/23 Progress Note Due Date 05/11/23 GOALS PT Goals 2 PT Goal 1 Goal Identifier Kegel strength 4 Rationale (for continence throughout the day/night for healthy hygeine) Target Date 05/11/23 PT Goal 2 Goal Identifier bowel emptying Goal Description complete bowel emptying 3-4 x week Rationale (for proper bowel mechanics/emptying) Target Date 05/11/23 Subjective Report Subjective Report see eval Treatment Interventions (PT) Interventions Therapeutic Procedure/Exercise;Self Care/Home Management;Therapeutic Activity Therapeutic Procedure/Exercise Therapeutic Procedures: strength, endurance, ROM, flexibillity minutes (49933) 15 Skilled Intervention to improved strength of pelvic floor Patient Response/Progress good understanding PTRx Ther Proc 1 Roll Ins Hooklying PTRx Ther Proc 1 - Details Hold 5 secondsPULL IN LOWER ABDOMEN YOU DO KEGEL Elevator exhale asyou contract [id number] or 20 reps 1x day PTRx Ther Proc 2 Roll Outs Hooklying PTRx Ther Proc 2 - Details PULL IN LOWER ABDOMEN YOU DO KEGEL Elevator exhale as you contract [id number] or 20 reps 1 x day Therapeutic Activity Therapeutic Activities: dynamic activities to improve functional performance minutes (77006) 10 Skilled Intervention to facilitate complete emptying of bladder Patient Response/Progress demonstrated techniques correctly PTRx Ther Act 1 Toileting Position PTRx Ther Act 1 - Details on step stool or bent over Self Care/home Management ADL/Home Mgmt Training (25153) 15 Self Care 1 educated in POC and normal pelvic floor anatomy/function Skilled Intervention to encourage understanding of pelvic floor PT Patient Response/Progress good understanding, no questions Eval/Assessments PT Eval, Low Complexity Minutes (25087) 30 Education Learner/Method Patient;No Barriers to Learning Plan Home program PTRX HEP Total Session Time Timed Code Treatment Minutes 40 Total Treatment Time (sum of timed and untimed services) 70 [facility] OUTPATIENT PHYSICAL THERAPY PLAN OF TREATMENT FOR OUTPATIENT REHABILITATION Patient's Last Name, First Name, Oswaldo Lal Date of : 1945 Provider's Name [facility] Onset Date: 01/12/23 (order date) Start of Care Date: 03/11/23 Medical Diagnosis: constipation PT Treatment Diagnosis: constipation/pelvic floor dysfunction Plan of Treatment Frequency/Duration: 2x month/ 3 months Certification date from 03/11/23 to 06/08/23 See note for plan of treatment details and functional goals Brian Borrero, PT , OCS I CERTIFY THE NEED FOR THESE SERVICES FURNISHED UNDER THIS PLAN OF TREATMENT AND WHILE UNDER MY CARE . Physician Signature Date X Referring Provider: Sherin Capellan Initial Assessment See Epic Evaluation- Start of Care Date: 03/11/23 * Yaritza Zimmerman, PT - 03/11/2023 1:10 PM CDT PHYSICAL THERAPY EVALUATION Type of Visit: Evaluation See electronic medical record for Abuse and Falls Screening details. Subjective Presenting condition or subjective complaint: constipation, incomplete emptying Long-life hx of constipation but worsened over the past few years. Referred to PT 01/12/23. Chief c/o unable to empty bowels fully and also will have some fecal incontinence/smearing. Reports CT scanshowed long and tortuous colon. [place] had been 4 the past few months but mostly is 1-2. Miralax is too much for her/too loose. Sometimes Dulcolax suppository. Goals are to empty fully and not have to board writer out bathrooms just in case for bowel/bladder. Date of onset: 01/12/23 (order date) Relevant medical history: Overweight; Bladder or bowel problems; Chest pain; Fibromyalgia; High blood pressure; Implanted device; Stroke Dates & types of surgery: tonsillectomy 1972, tubal ligation 1981, vein stripping 1995, herniated disc 2004, right hemicolectomy 2006, hernia repair 2009, gall bladder, TKA 2020, heart stents 2016 Prior diagnostic imaging/testing results: CT scan; X-ray Prior therapy history for the same diagnosis, illness or injury: No Living Environment Social support: With a significant other or spouse Type of home: 2-story Stairs to enter the home: Yes 4 Ramp: No Stairs inside the home: Yes Help at home: None Equipment owned: Straight Cane; Walker with wheels; Grab bars Employment: Hobbies/Interests: sewing, gardening Patient goals for therapy: have regular BM's so no loss of control Objective PELVIC EVALUATION ADDITIONAL HISTORY: Sex assigned at : Female Gender identity: Female Pronouns: Bladder History: Feels bladder filling: Yes Triggers for feeling of inability to wait to go to the bathroom: No How long can you wait to urinate: Gets up at night to urinate: Yes 1 Can stop the flow of urine when urinating: Sometimes Volume of urine usually released: Average Other issues: Number of bladder infections in last 12 months: Fluid intake per day: 24 oz 16 1 Medications taken for bladder: No Activities causing urine leak: Sneeze; Cough Amount of urine typically leaked: few drops Pads used to help with leaking: No Bowel History: Frequency of bowel movement: once every 3-4 days Consistency of stool: Soft-formed Ignores the urge to defecate: No Other bowel issues: Loss of stool; Loss of gas; Straining to have bowel movement Length of time spent trying to have a bowel movement: Sexual Function History: Sexual orientation: Straight Sexually active: Yes Lubrication used: Pelvic pain: Pain or difficulty with orgasms/erection/ejaculation: State of menopause: Post-menopause (I am done with menopause) Hormone medications: Are you currently : No, Number of previous pregnancies: 3, Number of deliveries: 3, If you have delivered before, did you have any of these issues during delivery: Episiotomy; Vaginal delivery, Have you been diagnosed with pelvic prolapse or abdominal separation: No, Have you tried pelvic floor strengthening exercises for 4 weeks: No, Do you have any history of trauma that is relevant to your care that you???d like to share: No Discussed reason for referral regarding pelvic health needs and external/internal pelvic floor muscle examination with patient/guardian. Opportunity provided to ask questions and verbal consent for assessment and intervention was given. PELVIC EXAM ABDOMINAL ASSESSMENT Abdominal Activation/Strength: fair TA set with exhale BIOFEEDBACK: Position: Supine Surface Electrodes: Perineal Abdominals: Synergistic with pelvic floor Perianals: Baseline muscle activity: <2.0mV microvolts Peak contraction 13mV Assessment & Plan CLINICAL IMPRESSIONS Medical Diagnosis: constipation Treatment Diagnosis: constipation/pelvic floor dysfunction Impression/Assessment: Patient is a 77 year old female with pelvic floor complaints. The following significant findings have been identified: Decreased strength, Decreased proprioception, Impaired muscle performance and Decreased activity tolerance. These impairments interfere with their ability toperform self care tasks, recreational activities, miner assistant, household mobility and community mobility as compared to previous level of function. Clinical Decision Making (Complexity): Clinical Presentation: Stable/Uncomplicated Clinical Presentation Rationale: based on medical and personal factors listed in PT evaluation Clinical Decision Making (Complexity): Low complexity PLAN OF CARE Treatment Interventions: Interventions: Manual Therapy, Neuromuscular Re-education, Therapeutic Activity, Therapeutic Exercise, Self-Care/Home Management African History Professor Goals PT Goal 1 Goal Identifier: Kegel strength 4 Rationale: (for continence throughout the day/night for healthy hygeine) Target Date: 05/11/23 PT Goal 2 Goal Identifier: bowel emptying Goal Description: complete bowel emptying 3-4 x week Rationale: (for proper bowel mechanics/emptying) Target Date: 05/11/23 Frequency of Treatment: 2x month Duration of Treatment: 3 months Recommended Referrals to Other Professionals: Physical Therapy Education Assessment: Learner/Method: Patient;No Barriers to Learning Risks and benefits of evaluation/treatment have been explained. Patient/Family/caregiver agrees with Plan of Care. Evaluation Time: PT Marques Flores Minutes (88484): 30 Signing Clinician: Brian Borrero PT [facility] OUTPATIENT PHYSICAL THERAPY PLAN OF TREATMENT FOR OUTPATIENT REHABILITATION Patient's Last Name, First Name, Oswaldo Lal Date of : 1945 Provider's Name [facility] Onset Date: 01/12/23 (order date) Start of Care Date: 03/11/23 Medical Diagnosis: constipation PT Treatment Diagnosis: constipation/pelvic floor dysfunction Plan of Treatment Frequency/Duration: 2x month/ 3 months Certification date from 03/11/23 to 06/08/23 See note for plan of treatment details and functional goals Brian Borrero, PT I CERTIFY THE NEED FOR THESE SERVICES FURNISHED UNDER THIS PLAN OF TREATMENT AND WHILE UNDER MY CARE (Physician attestation of this document indicates review and certification of the therapy plan). Referring Provider: Sherin Capellan Initial Assessment See Epic Evaluation- Start of Care Date: 03/11/23 documented in this encounter Plan of Treatment Not on file documented as of this encounter Visit Diagnoses Diagnosis Pelvic floor dysfunction- Primary Pelvic muscle wasting Chronic idiopathic constipation Unspecified constipation documented in this encounter Care Teams Dam Operator Relationship Specialty Start Date End Date Ryanne Gardner MD [place] [address] [address] PCP - General 10/19/16 documented as of this encounter
--- OUTSIDE RECORDS SUMMARY | 2023-11-24 10:45 | XMS_ITS | Encounter Summary ---
Author Name Unknown Organization [facility] Address [address] [place] [address] Care Team Providers Care Marketing Production Specialist Name Role Phone Ryanne Gardner MD Primary Care Provider [phone] Encounter Details Date Type Department Care Team (Latest Contact Info) Description 03/21/2023 1:35 PM CDT Therapy Visit [facility] [address] [facility] [address] [place], [place] [id number] Sherin Capellan, INTENSIVE CARE MEDICINE SPECIALIST [employer] All in therapy clinic [address] [facility] [address] [place], [place] [address] [place] [address] [facility] [address] [place] [address] Chronic idiopathic constipation (Primary Dx); [...] wasting documented in this encounter Care Teams Marketing Production Specialist Relationship Specialty Start Date End Date Ryanne Gardner MD [facility] [address] [place], [place] [id number] PCP - General 10/19/16 documented as of this encounter
--- OUTSIDE RECORDS SUMMARY | 2023-11-24 10:45 | XMS_ITS | Clinical Summary ---
Author Name Unknown Organization [facility] Address [place], [place] [address] Care Team Providers Care Strategic Accounts Manager Name Role Phone Judy Taveras PA-C Primary Care Provider [phone] Allergies Active Allergy Reactions Criticality Noted Date Comments Celecoxib Nausea Only 06/10/2022 nausea and pressure in head Chlorpheniramine-Phenylpr opan Other - Describe In Comment Field 02/13/2019 Itchy eyes Horseradish Hives Medium 10/10/2016 Lisinopril Cough Medium 10/10/2016 Nitrofurantoin Monohyd/M-Cryst Diarrhea High 10/10/2016 Vhdmhix-Qzo-Nua Reductase Inhibitors Myalgia Medium 10/10/2016 Sulfa (Sulfonamide Antibiotics) Rash High 10/10/2016 Medications Medication Sig Dispensed Refills Start Date End Date Status cholecalciferol (VITAMIN D3) 1,000 unit capsule Take 1,000 Units by mouth once daily. 0 Active BIOTIN ORAL Take 1 Tablet by mouth once daily. 0 Active artificial tears, hypromellose 0.5%, (ISOPTO TEARS) 0.5 % ophthalmic drop Place 1 Drop into both eyes each time if needed for Dry Eyes. 0 Active polyethylene glycol (MIRALAX; GLYCOLAX) 17 g packet Take 17 g by mouth once daily if needed for Constipation. 0 02/13/2019 Active nitroglycerin (NITROSTAT) 0.4 mg sublingual tabletIndications:NSTE AR (non-ST elevated myocardial infarction) (HC) Place 1 tablet under the tongue every 5 minutes if needed for Chest Pain (first choice for chest pain). 25 tablet. 1 11/10/2020 Active olopatadine (PATADAY) 0.2 % ophthalmic solutionIndications:al lergic conjunctivitis Place 1 Drop into the eye(s) once daily if needed. 12 06/10/2022 Active finasteride (PROSCAR) 5 mg tablet Take 2.5 mg by mouth once daily. 0 09/03/2022 Active cetirizine (ZYRTEC) 10 mg tabletIndications:seas onal allergic rhinitis Take 10 mg by mouth once daily if needed. 0 Active guar gum (BENEFIBER) powd Mix 1 Tbsp in liquid then take by mouth once daily if needed. MIX IN 4 OZ BEVERAGE/SOFT FOOD. 0 Active pravastatin (PRAVACHOL) 80 mg tabletIndications:Pure hypercholesterolemia,H ypertension, unspecified type Take 1 Tablet (80 mg) by mouth at bedtime. 0 12/24/2022 Active clopidogreL (PLAVIX) 75 mg tabletIndications:ASCV D (arteriosclerotic cardiovascular disease) Take 1 Tablet (75 mg) by mouth once daily. 0 12/24/2022 Active ezetimibe (ZETIA) 10 mg tabletIndications:Hype rlipidemia, unspecified hyperlipidemia type,Coronary artery disease, unspecified vessel or lesion type, unspecified whether angina present, unspecified whether little traverse or transplanted heart Take 1 Tablet (10 mg) by mouth once daily. 90 Tablet 3 12/27/2022 Active metoprolol succinate (TOPROL XL) 25 mg Sustained-Release tabletIndications:NSTE AR (non-ST elevated myocardial infarction) (HC) Take 1 Tablet (25 mg) by mouth once daily. 90 Tablet 1 07/21/2023 Active losartan (COZAAR) 50 mg tabletIndications:Pure hypercholesterolemia,H ypertension, unspecified type Take 1 tablet by mouth once daily 90 Tablet 0 09/22/2023 Active Active Problems Problem Noted Date Diagnosed Date Abnormal stress test 11/15/2022 Overview: - stress echo 11/02/22: Positive stress echo for ischemia involving the mid and apical anterior and jair-septal nj. 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 Resolved Problems Problem Noted Date Diagnosed Date Resolved Date Elevated troponin 10/10/2016 05/05/2018 Encounters Date Type Department Care Team Description 11/05/2023 1:48 AM SKETCH MAKER - 11/05/2023 5:28 AM SKETCH MAKER Emergency [facility] Emergency Department [address] [place] [address] Onelia Acosta MD Atypical chest pain (Primary Dx) Discharge Disposition: Home Self Care 09/22/[address] [place] [address] David Chavez MD Refill Request (Losartan) from Last 3 Months Family History Medical History Relation Name Comments Cancer-colon Brother Coronary artery disease Father Cancer-colon Mother Relation Name Status Comments Brother Father Mother Social History Tobacco Use Types Packs/Day Years Used Date Smoking Tobacco: Former Cigarettes 1 17 0 10/10/1968 - 10/10/1985 Smokeless Tobacco: Never Tobacco Cessation:Counseling Given: Yes Alcohol Use Standard Drinks/Week Comments Yes 0 (1 standard drink = 0.6 oz pur e alcohol) 4-5 drinks a week Social Connections Answer Date Recorded Frequency of Communication with Friends and Fami ly Not on file 10/10/2021 Financial Resource Strain Answer Date R ecorded Difficulty of Paying Living Expenses Not on file 10/10/2021 Difficulty of Paying Living Expenses Not on file 10/10/2021 Sex and Gender Information Value Date Recorded Sex Assigned at Not on file Gender Identity Not on file Sexual Orientation Not on file Obstetrics History Last Filed Vital Signs Vital Sign Reading Time Taken Comments Blood Pressure 163/67 11/05/2023 5:16 AM SKETCH MAKER Pulse 52 11/05/2023 5:16 AM SKETCH MAKER Temperature 36.2 ??C (97.1 ??F) 11/05/2023 1:56 AM CS T Respiratory Rate 20 11/05/2023 1:52 AM SKETCH MAKER Oxygen Saturation 94% 11/05/2023 5:16 AM SKETCH MAKER Inhaled Oxygen Concentration - - Weight 91.2 kg (201 lb) 11/05/2023 1:52 AM SKETCH MAKER Height 170.2 cm (5' 7) 11/05/2023 1:52 AM SKETCH MAKER Body Mass Index 31.48 11/05/2023 1:52 AM SKETCH MAKER Plan of Treatment Health Maintenance Due Date Last Done Comments Tdap 1958 Depression screening for age 12+ 1959 Hepatitis C screening for ag e 18-79 1965 Tetanus booster 1967 Zoster (shingles) series for age 50+ (1 of 2) 1997 DEXA/DXA scan for age 65+ 2012 Medicare Wellness for age 65+ 2012 Pneumococcal series for age 65+ (1 of 1 - PCV) 2012 Influenza for age 65+ 06/10/2023 BMI (ht and wt on same day) for age 18+ 11/05/2023 11/05/2022, 04/26/2017 COVID-19 vaccine series Completed 08/16/20, 08/19/2022, 03/05/2022, Additional history exists Procedures Procedure Name Priority Date/Time Associated Diagnosis Comments TROPONIN T (HS) ONE TIME Timed 11/05/2023 4:05 AM SKETCH MAKER XR CHEST 2 VIEWS PA AND LATERAL STAT 11/05/2023 2:10 AM SKETCH MAKER PROTIME-INR STAT 11/05/2023 2:08 AM SKETCH MAKER CBC W PLT NO DIFF STAT 11/05/2023 2:0 8 AM SKETCH MAKER BASIC METABOLIC PANEL STAT 11/05/2023 2:08 AM SKETCH MAKER PRO-BNP STAT 11/05/2023 2:08 AM SKETCH MAKER TROPONIN T (HS) ACUTE W/2HR REFLEX STAT 11/05/2023 2:08 AM SKETCH MAKER EKG 12 LEAD STAT 11/05/2023 1:37 AM SKETCH MAKER from Last 3 Months Results * TROPONIN T (HS) ONE TIME (11/05/2023 4:05 AM SKETCH MAKER) TROPONIN T HS 7 6-10 ng/L ng/L 11/05/2023 4:55 AM SKETCH MAKER [facility] Blood BLOOD SPECIMEN / Unknown Butterfly / Unknown 11/05/2023 4:05 AM SKETCH MAKER 11/05/2023 4:21 AM SKETCH MAKER Onelia Acosta MD CHEMISTRY [facility] [address] [place] [address], [place] * XR CHEST 2 VIEWS PA AND LATERAL (11/05/2023 2:10 AM SKETCH MAKER) Anatomical Region Laterality Modality CHEST, THORAX, Lung, HEART Digit al Radiography 11/05/2023 2:13 AM SKETCH MAKER Impressions 11/05/2023 2:13 AM SKETCH MAKER 1. No acute cardiopulmonary disease is seen. Dictated by Solis Blakely MD @ Nov 05 2023 ??2:13AM (Electronically Signed) ?? Narrative 11/05/2023 2:13 AM SKETCH MAKER For Patients: ??As a result of the Cures Act, medical imaging exams and procedure reports are released immediately into your electronic medical record. ??You may view this report before your referring provider. ??If you have questions, please contact your health care provider. INDICATION: Chest pain TECHNIQUE: Chest radiograph 2 views COMPARISON: None FINDINGS: Mediastinum: The mediastinum is normal in appearance. The heart silhouette is normal in size and morphology. Lung: Both lungs are unremarkable in appearance. No sign of pleural effusion seen. No pneumothorax is identified. Bone and Soft tissue: Unremarkable for age. Procedure Note Solis Blakely MD - 11/05/2023 For Patients: As a result of the Cures Act, medical imagingexams and procedure reports are released immediately into your electronicmedical record. You may view this report before your referring provider.If you have questions, please contact your health care provider. INDICATION: Chest pain TECHNIQUE: Chest radiograph 2 views COMPARISON: None FINDINGS: Mediastinum: The mediastinum is normal in appearance. The heart silhouetteis normal in size and morphology. Lung: Both lungs are unremarkable in appearance. No sign of pleuraleffusion seen. No pneumothorax is identified. Bone and Soft tissue: Unremarkable for age. IMPRESSION: 1. No acute cardiopulmonary disease is seen. Dictated by Solis Blakely MD @ Nov 05 2023 2:13AM (Electronically Signed) Onelia Acosta MD GENERAL IMAGING * TROPONIN T (HS) ACUTE W/2HR REFLEX (11/05/2023 2:08 AM SKETCH MAKER) TROPONIN T HS 7 6-10 ng/L ng/L 11/05/2023 2:45 AM SKETCH MAKER [facility] Blood BLOOD SPECIMEN / Unknown Non-Lab Venipuncture / Unknown 11/05/2023 2:08 AM SKETCH MAKER 11/05/2023 2:10 AM SKETCH MAKER Narrative [facility] - 11/05/2023 2:45 AM SKETCH MAKER hs-cTnT (Elecsys Troponin T Gen 5) concentration (s) above the sex-specific 99th percentile (16 ng/L or greater for males or 11 ng/L or greater for females) are indicative of myocardial injury. If initial hs-cTnT <=100 ng/L at presentation, a 0h/2h ABSOLUTE (ng/L) delta change (rising or falling) of >=10 ng/L suggests a significant change, whereas a 0h/2h delta change <=3 ng/L suggests no significant change. If initial hs-cTnT >100 ng/L at presentation, a 0h/2h/ RELATIVE (percent, %) delta change of 20% is suggested to distinguish patients with acute vs. chronic myocardial injury. There are multiple etiologies that can cause hs-cTnT increases above the 99th percentile (myocardial injury) other than acute myocardial infarction. Clinical context and careful clinical evaluation are critical for diagnosis and risk-stratification. The diagnosis of acute myocardial infarction requires a rising and/or falling pattern in hs-cTnT concentrations with at least one value above the sex-specific 99th percentile PLUS at least one of the following clinical criteria: ischemic symptoms, new or presumed new significant ST-T wave changes or new LBBB, development of pathological Q waves, imaging evidence of new loss of viable myocardium or new regional wall motion abnormality, or identification of intracoronary atherothrombosis or an acute angiographic culprit on coronary angiography. In appropriate low-risk patients with a non-ischemic electrocardiogram without active chest pain with a symptom onset >3-hours without recurrence, a single initial hs-cTnT<6 ng/L identifies patient with a very low risk in emergency department patient population. Onelia Acosta MD CHEMISTRY [facility] [address] [place] [address], * CBC W PLT NO DIFF (11/05/2023 2:08 AM SKETCH MAKER) [facility] WHITE BLOOD COUNT 7.7 4.5 - 11.0 thou/cu mm 11/05/2023 2:17 AM [facility] RED BLOOD COUNT 4.34 4.00 - 5.20 mil/cu mm 11/05/2023 2:17 AM [facility] HEMOGLOBIN 13.4 12.0 - 16.0 g/dL 11/05/2023 2:17 AM [facility] HEMATOCRIT 39.7 33.0 - 51.0 % 11/05/2023 2:17 AM [facility] MCV 92 80 - 100 fL 11/05/2023 2:17 AM [facility] MCH 30.9 26.0 - 34.0 pg 11/05/2023 2:17 AM [facility] MCHC 33.8 32.0 - 36.0 g/dL 11/05/2023 2:17 AM [facility] RDW 13.2 11.5 - 15.5 % 11/05/2023 2:17 AM [facility] PLATELET COUNT 252 140 - 440 thou/cu mm 11/05/2023 2:17 AM [facility] MPV 9.6 6.5 - 11.0 fL 11/05/2023 2:17 AM [facility] NRBC 0.0 % 11/05/2023 2:17 AM [facility] ABS NRBC 0.0 thou /cu mm 11/05/2023 2:17 AM SKETCH MAKER [facility] Blood BLOOD SPECIMEN / Unknown Non-Lab Venipuncture / Unknown 11/05/2023 2:08 AM SKETCH MAKER 11/05/2023 2:10 AM SKETCH MAKER Onelia Acosta MD HEMATOLOGY [facility] [address] [place] [address], * PROTIME-INR (11/05/2023 2:08 AM SKETCH MAKER) INR 1.0 <1.3 11/05/2023 2:29 AM SKETCH MAKER [facility] PROTIME 11.6 10.3 - 12.3 sec 11/05/2023 2:29 AM SKETCH MAKER [facility] Blood BLOOD SPECIMEN / Unknown Non-Lab Venipuncture / Unknown 11/05/2023 2:08 AM SKETCH MAKER 11/05/2023 2:10 AM SKETCH MAKER Narrative [facility] - 11/05/2023 2:29 AM SKETCH MAKER ?Therapeutic Range 2.0-3.0 for most anticoagulated patients 2.5-3.5 or 4.0 for high risk patients The INR is only used for patients on stable oral anticoagulant therapy. It makes no significant contribution to the diagnosis or treatment of patients whose Protime is prolonged for other reasons. INR results are increased when heparin levels exceed 1.0 U/mL, which corresponds to an aPTT >125 seconds if the patient is on UFH. Onelia Acosta MD HEMATOLOGY [facility] [address] [place] [address], * PRO-BNP (11/05/2023 2:08 AM SKETCH MAKER) PRO-BNP 208 <450 pg/mL 11/05/2023 2:50 AM SKETCH MAKER [facility] Blood BLOOD SPECIMEN / Unknown Non-Lab Venipuncture / Unknown 11/05/2023 2:08 AM SKETCH MAKER 11/05/2023 2:10 AM SKETCH MAKER Narrative [facility] - 11/05/2023 2:50 AM SKETCH MAKER The following cut-points have been suggested for the use of proBNP for the diagnostic evaluation of heart failure (HF) in patient with acute dyspnea. Patients with eGFR >= 60 Diagnosis (rule in CHF) ? <50 Years Old ?450 pg/mL 50 - 75 Years Old ?900 pg/mL >75 Years Old ? 1800 pg/mL Exclusion (rule out CHF) Age Independent ?300 pg/mL A cutoff of 1200 pg/mL for patients with an eGFR <60 yields a diagnostic sensitivity of 89% and specificity of 72% for acute congestive heart failure. ? Onelia Acosta MD SEND OUTS [facility] [address] [place] [address], * (ABNORMAL) BASIC METABOLIC PANEL (11/05/2023 2:08 AM [facility]) Pathologist [facility] SODIUM 141 136 - 145 mmol/L 11/05/2023 2:45 AM [facility] POTASSIUM 4.1 3.5 - 5.1 mmol/L 11/05/2023 2:45 AM [facility] CHLORIDE 106 98 - 107 mmol/L 11/05/2023 2:45 AM [facility] CO2,TOTAL 24 22 - 29 mmol/L 11/05/2023 2:45 AM [facility] ANION GAP 11 5 - 18 11/05/2023 2:45 AM [facility] GLUCOSE 196(H) 70 - 99 mg/dL 11/05/2023 2:45 AM SKETCH MAKER [facility] CALCIUM 9.3 8.8 - 10.2 mg/dL 11/05/2023 2:45 AM [facility] BUN 27(H) 8 - 23 mg/dL 11/05/2023 2:45 AM [facility] CREATININE 0.90 0.50 - 0.90 mg/dL 11/05/2023 2:45 AM [facility] BUN/CREAT RATIO 30(H) 10 - 20 2:45 AM [facility] eGFR 66(L) >90 mL/min/1.7 3m2 11/05/2023 2:45 AM [facility] Comment:As of 2021, eG FR is calculated by the CKD-EPI creatinine equation without race adjustment. ??eGFR can be influenced by muscle mass, exercise, and diet. ??The reported eGFR is an estimation only and is only applicable if the renal function is stable. Blood BLOOD SPECIMEN / Unknown Non-Lab Venipuncture / Unknown 11/05/2023 2:08 AM SKETCH MAKER 11/05/2023 2:10 AM [facility] Onelia Acosta MD [facility] [address] [place] [address], * EKG 12 LEAD (11/05/2023 1:37 AM [facility]) Interpretation Sinus bradycardia with sinus arrhythmia Right bundle branch block Abnormal ECG BEYOND NOW Ventricular Rate 56 BPM BEYOND NOW Atrial Rate 56 BPM BEYOND NOW P-R Interval 150 ms BEYOND NOW QRS Duration 132 ms BEYOND NOW QT 458 ms BEYOND NOW QTc 441 ms BEYOND NOW P [place] 61 degrees BEYOND NOW R [place] 20 degrees BEYOND NOW T [place] 72 degrees BEYOND NOW 11/05/2023 1:37 AM SKETCH MAKER 11/05/2023 12:01 PM SKETCH MAKER Narrative [facility] - 11/05/2023 12:01 PM SKETCH MAKER Test Indication: CP Onelia Acosta MD EKG ORD [facility] [place], [place] from Last 3 Months Advance Directives Latest Code Status on File Code Status Date Activated Date Inactivated Comments Full Code 11/15/2022 11:59 AM 11/15/2022 9:10 PM Question Answer Comments Code Status Discussion: Reviewed Preferences Code Status History Code Status Date Activated Date Inactivated Comments Full Code 05/05/2018 8:05 PM 05/08/2018 9:05 PM Question Answer Comments Code Status Discussion: Discussed Full Code 10/11/2016 12:23 PM 10/14/2016 3:40 PM Full Code 10/10/2016 4:54 PM 10/11/2016 12:23 PM Question Answer Comments Code Status Discussion: Discussed Care Teams Strategic Accounts Manager Relationship Specialty Start Date End Date Judy Taveras PA-C [address] [place] [id number] PCP - General Physician Glazing Department Supervisor 11/08/22
== END 2023-11-24 10:30 | disposition home or self-care (01) ==
PROVIDERS: PCP Physician Assistant Medical; Visit Provider Physician Assistant Medical
DX: I25.10 Atherosclerotic heart disease of native coronary artery without angina pectoris (principal); I10 Essential (primary) hypertension
CPT/HCPCS: 80053; 80061; 84439; 84443

== ENCOUNTER 2024-01-02 13:36 | Outpatient (CLI) | payer MEDICARE, OTHER, SELFPAY | END 2024-01-02 13:37 | disposition home or self-care (01) | PROVIDERS: PCP Physician Assistant Medical; Visit Provider Physician Assistant | DX: R10.13 Epigastric pain (principal); I10 Essential (primary) hypertension | CPT/HCPCS: 80076; 82150; 83690 ==

== ENCOUNTER 2024-02-09 13:45 | Outpatient (CLI) | payer MEDICARE, OTHER, SELFPAY ==
--- OUTSIDE RECORDS SUMMARY | 2024-02-10 08:33 | XMS_ITS | Clinical Summary ---
Author Name Unknown Organization [facility] Address [address] [place] [address] Care Team Providers Care Indirect Fire Infantryman Name Role Phone Ryanne Gardner MD Primary Care Provider [phone] Medications No known medications Resolved Problems Problem [...] 2023 08/19/2022, 03/05/2022, 03/05/2022, Additional history exists PHQ-2 (once per calendar year) 2023 DTAP/TDAP/TD IMMUNIZATION (2 - Td or Tdap) 04/10/2024 04/10/2014 INFLUENZA VACCINE (Season Ended) 2024 08/11/2021, 09/02/2020, 10/20/2012, Additional history exists HPV IMMUNIZATION Aged Out No longer e [...] age to complete this topic Care Teams Indirect Fire Infantryman Relationship Specialty Start Date End Date Ryanne Gardner MD [facility] [address] [place] [address] PCP - General 10/19/16
--- OUTSIDE RECORDS SUMMARY | 2024-02-10 08:33 | XMS_ITS | Referral Summary ---
Author Name Unknown Organization [facility] Address [facility] [place] [address] Care Team Providers Care Cafe Operator Name Role Phone Ryanne Gardner MD Primary Care Provider [phone] Medications No known medications Resolved Problems Problem [...] of Treatment Not on file Care Teams Cafe Operator Relationship Specialty Start Date End Date Ryanne Gardner MD [facility] [address] [place], [place] [phone] PCP - General 10/19/16
--- OUTSIDE RECORDS SUMMARY | 2024-02-10 08:33 | XMS_ITS | Clinical Summary ---
Author Name Unknown Organization [employer] [facility] Address [place], [place] [address] Care Team Providers Care Accreditation Manager Name Role Phone Judy Taveras PA-C Primary Care Provider [phone] Allergies Active Allergy Reactions Criticality Noted Date Comments Celecoxib Nausea Only 06/10/2022 nausea and pressure in head Chlorpheniramine-Phenylpr opan Other - Describe In Comment Field 02/13/2019 Itchy eyes Horseradish Hives Medium 10/10/2016 Lisinopril Cough Medium 10/10/2016 Nitrofurantoin Monohyd/M-Cryst Diarrhea High 10/10/2016 Cdmlmtj-Qsv-Sgp Reductase Inhibitors Myalgia Medium 10/10/2016 Sulfa (Sulfonamide Antibiotics) Rash High 10/10/2016 Medications Medication Sig Dispensed Refills Start Date End Date Status cholecalciferol (VITAMIN D3) 1,000 unit capsule Take 1,000 Units by mouth once daily. Active BIOTIN ORAL Take 1 Tablet by mouth once daily. Active artificial tears, hypromellose 0.5%, (ISOPTO TEARS) 0.5 % ophthalmic drop Place 1 Drop into both eyes each time if needed for Dry Eyes. Active polyethylene glycol (MIRALAX; GLYCOLAX) 17 g packet Take 17 g by mouth once daily if needed for Constipation. 0 02/13/2019 Active nitroglycerin (NITROSTAT) 0.4 mg sublingual tabletIndications:NS REYMUNDO (non-ST elevated myocardial infarction) (HC) Place 1 tablet under the tongue every 5 minutes if needed for Chest Pain (first choice for chest pain). 25 tablet. 1 11/10/2020 Active olopatadine (PATADAY) 0.2 % ophthalmic solutionIndications: allergic conjunctivitis Place 1 Drop into the eye(s) once daily if needed. 12 06/10/2022 Active finasteride (PROSCAR) 5 mg tablet Take 2.5 mg by mouth once daily. 09/03/2022 Active cetirizine (ZYRTEC) 10 mg tabletIndications:se asonal allergic rhinitis Take 10 mg by mouth once daily if needed. Active guar gum (BENEFIBER) powd Mix 1 Tbsp in liquid then take by mouth once daily if needed. MIX IN 4 OZ BEVERAGE/SOFT FOOD. Active clopidogreL (PLAVIX) 75 mg tabletIndications: CVD (arteriosclerotic cardiovascular disease) Take 1 Tablet (75 mg) by mouth once daily. 0 12/24/2022 Active rosuvastatin (CRESTOR) 10 mg tabletIndications:Hy perlipidemia, unspecified hyperlipidemia type Take 1 Tablet (10 mg) by mouth at bedtime. 90 Tablet 3 12/09/2023 Active losartan (COZAAR) 50 mg tabletIndications:Pu re hypercholesterolemia ,Hypertension, unspecified type Take 1 Tablet (50 mg) by mouth once daily. 90 Tablet 3 12/28/2023 Active metoprolol succinate (TOPROL XL) 25 mg Sustained-Release tabletIndications:NS REYMUNDO (non-ST elevated myocardial infarction) (HC) Take 1 Tablet (25 mg) by mouth once daily. 90 Tablet 3 01/23/2024 Active metoprolol succinate (TOPROL XL) 25 mg Sustained-Release tabletIndications:NS REYMUNDO (non-ST elevated myocardial infarction) (HC) Take 1 Tablet (25 mg) by mouth once daily. 90 Tablet 1 07/21/2023 4 Discontinue d(Reorder (E-cancel not sent)) metoprolol succinate (TOPROL XL) 25 mg Sustained-Release tabletIndications:NS REYMUNDO (non-ST elevated myocardial infarction) (HC) Take 1 Tablet (25 mg) by mouth once daily. 90 Tablet 3 01/19/2024 4 Discontinue d(Reorder (E-cancel not sent)) Active Problems Problem Noted Date Diagnosed Date [...] Encounters Date Type Department Care Team Description 01/23/2024 Refill [facility] - [address] [place] [address] Pasquale Lara MD Refill Request 01/19/[address] [place] [address] Pasquale Lara MD Refill Request 12/28/2023 Refill [facility] [address] [place] [address] [address] [place] [address] David Chavez MD Refill Request (Losartan) 12/09/2023 11:30 AM HEAD ROSE GROWER Office Visit [facility] & [address] [address] Pasquale Lara MD from Last 3 Months Family History Medical [...] Comments Blood Pressure 163/67 11/05/2023 5:16 AM HEAD ROSE GROWER Pulse 52 11/05/2023 5:16 AM HEAD ROSE GROWER Temperature 36.2 ??C (97.1 ??F) 11/05/2023 1:56 AM CS T Respiratory Rate 20 11/05/2023 1:52 AM HEAD ROSE GROWER Oxygen Saturation 94% 11/05/2023 5:16 AM HEAD ROSE GROWER Inhaled Oxygen Concentration - - Weight 91.2 kg (201 lb) 11/05/2023 1:52 AM HEAD ROSE GROWER Height 170.2 cm (5' 7) 11/05/2023 1:52 AM HEAD ROSE GROWER Body Mass Index 31.48 11/05/2023 1:52 AM HEAD ROSE GROWER Plan of Treatment Health Maintenance Due Date Last Done Comments Tdap 1956 Depression screening for age 12+ 1959 Hepatitis C screening for ag e 18-79 1965 Tetanus booster 1967 Zoster (shingles) series for age 50+ (1 of 2) 1997 DEXA/DXA scan for age 65+ 2012 Medicare Wellness for age 65+ 2012 Pneumococcal series for age 65+ (1 of 1 - PCV) 2012 BMI (ht and wt on same day) for age 18+ 11/05/2023 11/05/2022, 04/26/2017 Influenza for age 65+ 06/10/2024 COVID-19 vaccine series Completed 08/16/20 23, 08/19/2022, 03/05/2022, Additional history exists Advance Directives * Full Code (Latest Code Status on File) Date Activated Date Inactivated Comments 11/15/2022 11:59 AM 11/15/2022 9:10 PM Question Answer Comments Code Status Discussion: Reviewed Preferences * Full Code Date Activated Date Inactivated Comments 05/05/2018 8:05 PM 05/08/2018 9:05 PM Question Answer Comments Code Status Discussion: Discussed * Full Code Date Activated Date Inactivated Comments 10/11/2016 12:23 PM 10/14/2016 3:40 PM * Full Code Date Activated Date Inactivated Comments 10/10/2016 4:54 PM 10/11/2016 12:23 PM Question Answer Comments Code Status Discussion: Discussed Care Teams Accreditation Manager Relationship Specialty Start Date End Date Judy Taveras PA-C [address] [place] [address] PCP - General Physician Relief Docking Master 11/08/22
== END 2024-02-09 13:46 | disposition home or self-care (01) ==
LOC: NFLDREF 02-10 08:32
PROVIDERS: PCP Physician Assistant Medical; Referring Provider Physician Assistant Medical; Visit Provider Internal Medicine
DX: E78.5 Hyperlipidemia, unspecified (principal); I25.10 Atherosclerotic heart disease of native coronary artery without angina pectoris
CPT/HCPCS: 80061

== ENCOUNTER 2024-03-27 11:40 | Outpatient (CLI) | payer MEDICARE, OTHER, SELFPAY ==
--- OUTSIDE RECORDS SUMMARY | 2024-04-04 14:38 | XMS_ITS | Referral Summary ---
Author Organization [facility] [place] Address [address] [place] [address] Care Team Providers Care Senior Medical Director Name Role Phone Ryanne Gardner MD Primary Care Provider Medications No known medications Resolved Problems Problem [...] of Treatment Not on file Care Teams Senior Medical Director Relationship Specialty Start Date End Date Ryanne Gardner MD [facility] [address] [place] [address] PCP - General 10/19/16
--- OUTSIDE RECORDS SUMMARY | 2024-04-04 14:38 | XMS_ITS | Data Portability ---
Author Organization [place] - [facility], Main Office Address [address] [address] Assessment Encounter Date Assessment Date Assessment LastModified by Organization Details LastModified Time 08/18/2020 08/18/2020 1. Biopsy-proven basal carcinoma left upper cutaneous lip here for Mohs surgery. We reviewed with the digital board and verbally the risks of surgery pain, discomfort, downtime, healing, scarring, need for flap or graft. Chance of infection. Written verbal informed consent obtained. Nerve block was performed in the gumline. 1% lidocaine with epinephrine about 4 cc initially then 4 to 6 cc added to the cutaneous lip throughout the day. All cosmetic borders were marked prior to anesthesia. Area cleansed with Betadine followed by alcohol. Mohs case number [id number] Stage I: Curette debulk. 1 and half millimeter margins taken down to the muscularis. Revealing basaloid islands from approximately 1:00 to 4:00. Stage II: Curette debulking performed. 1-1/2 to 2 mm margins were taken from 11:00 to 6:00 through 3:00 revealing focal basaloid islands near 3:00. Stage III: Curette debulking performed. 1 mm margins were taken from 1:00 to 5:00 through 3:00 revealing no residual basal carcinoma. Total stages 3, total sections 3. Final defect approximately 2.5 x 2.2 cm. A laterally based advancement flap was performed by incising along the nasolabial fold undermining all directions towards the vermilion border 2 cm and 1 cm onto the cheek rotated medially closed with 4-0 Vicryl running 4-0 nylon and 1 aspect simple 4-0 nylon in the vertical aspect. Redundancy removed along vermilion border. Closed in a similar fashion. Pressure dressing applied. Wound care instructions given. Cell phone number given. Advancement flap with square centimeter area of 4 x 3 cm equaling 12 cm??. Follow-up in [place] in 8 days for suture removal. [id number] Not available 08/18/2020 19:18:45 Plan of Treatment Reminders Order Date Submit Date Provider Last Modified By Organization Details Last Modified Time Details Appointments None record ed. Lab None record ed. Referral None record ed. Procedures None record ed. Surgeries None record ed. Imaging None record ed. Medication Orders None record ed. Patient TargetsNo targets recorded. Patient InstructionsNo instructions recorded. Reason for Referral None Reported. Medical Equipment None Reported. Medications Name Sig Start Date Stop Date Status Note LastModified by Organization Details LastModified Time losartan 50 mg tablet active Not Available Not Available Not Available azithromycin 250 mg tablet active Not Available Not Availabl e Not Available pravastatin 40 mg tablet active Not Available Not Available No t Available metoprolol succinate ER 50 mg tablet,extende d release 24 hr active Not Available Not Available Not Available doxycycline monohydrate 100 mg capsule active Not Available Not Availab le Not Available cephalexin 500 mg capsule Take 1 capsule twice a day by oral route as directed for 10 days. active Not Available Not Available No t Available omeprazole 20 mg capsule,delaye d release active Not Available Not Available No t Available olopatadine 0.2 % eye drops active Not Available Not Available Not Available Vitals None Recorded Social History None recorded. Functional Status None recorded. Mental Status None recorded. Family History Nothing Reported. Medical History No medical history recorded. Gynecological HistoryNo gynecological history recorded. Obstetrics History GPAL:G 0 P 0 0 0 0 Past Encounters Encounter ID Performer Location Encounter Start Date Encounter Closed Date Diagnosis/Indication Diagnosis SNOMED-CT Code [id number] Jimmy Tran MD Main Office [address] [address] 08/18/2020 09:28:27 08/23/2020 15:19:33 Basal cell carcinoma of skin of lip [id number] Health Concerns Section Related Observation LastModified by Organization Detai ls LastModified Time None Recorded Concern Status LastModified by Organization Details LastModified Time None Recorded Advance Directives Directive None Recorded Payers Encounter Date Sequence Insurance Name Policy Number Policy Garcia Covered Member ID Garcia Member ID Guarantor Name 08/18/2020 2 MEDICA (MEDICARE SUPPLEMENT) [id number] Oswaldo Cox [id number] Oswaldo Cox 08/18/2020 1 MEDICARE [place]: [facility] [employer] [facility] Oswaldo Cox [id number] Oswaldo Cox Notes Date Note Type Note Provider Name and Address Organization Details Recorded Time 08/18/2020 text/html HPI Notes: 75-year-old female presents for Mohs surgery for large basal carcinoma left upper cutaneous lip. Her dropped her off he does not stay for today's visit. Records reviewed from [place] prior to the procedure. Along with pathology. There is no change in past medical history family history or social history excluding changes related to the coronavirus Jimmy Tran MD Formerly named [facility] Manuel Flores,[facility], [place], [address], [facility] 08/18/2020 19:20:24 OBGyn Episode No OBEpisode recorded.
--- OUTSIDE RECORDS SUMMARY | 2024-04-04 14:38 | XMS_ITS | Clinical Summary ---
Author Organization [employer] [facility] Address [place], [place] [address] Care Team Providers Care Clinical Program Coordinator Name Role Phone Judy Taveras PA-C Primary Care Provider [phone] Allergies Active Allergy Reactions Criticality Noted Date Comments Celecoxib Nausea Only 06/10/2022 nausea and pressure in head Chlorpheniramine-Phenylpr opan Other - Describe In Comment Field 02/13/2019 Itchy eyes Horseradish Hives Medium 10/10/2016 Lisinopril Cough Medium 10/10/2016 Nitrofurantoin Monohyd/M-Cryst Diarrhea High 10/10/2016 Xseiqmc-Ljc-Yhw Reductase Inhibitors Myalgia Medium 10/10/2016 Sulfa (Sulfonamide [...] MIX IN 4 OZ BEVERAGE/SOFT FOOD. Active rosuvastatin (CRESTOR) 10 mg tabletIndications:Hy perlipidemia, [...] once daily. 90 Tablet 3 01/23/2024 Active clopidogreL (PLAVIX) 75 mg tabletIndications: CVD (arteriosclerotic cardiovascular disease) Take 1 Tablet (75 mg) by mouth once daily. 90 Tablet 3 03/22/2024 Active clopidogreL (PLAVIX) 75 mg tabletIndications: CVD (arteriosclerotic cardiovascular disease) Take 1 Tablet (75 mg) by mouth once daily. 0 12/24/2022 4 Discontinue d(Reorder (E-cancel not sent)) Active [...] Encounters Date Type Department Care Team Description 03/22/[address] [place] [phone] Pasquale Lara MD Medication Management 03/22/[address] [place] [address] Pasquale Lara MD Refill Request (clopidogreL (PLAVIX) 75 mg tablet ) 03/20/[address] [place] [address] Pasquale Lara MD Refill Request (clopidogrel (Plavix)) 01/23/[address] [place] [address] Pasquale Lara MD Refill Request 01/19/[address] [place] [address] Pasquale Lara MD Refill Request from Last 3 Months Family History Medical [...] Comments Blood Pressure 163/67 11/05/2023 5:16 AM DIE STORAGE CLERK Pulse 52 11/05/2023 5:16 AM DIE STORAGE CLERK Temperature 36.2 ??C (97.1 ??F) 11/05/2023 1:56 AM CS T Respiratory Rate 20 11/05/2023 1:52 AM DIE STORAGE CLERK Oxygen Saturation 94% 11/05/2023 5:16 AM DIE STORAGE CLERK Inhaled Oxygen Concentration - - Weight 91.2 kg (201 lb) 11/05/2023 1:52 AM DIE STORAGE CLERK Height 170.2 cm (5' 7) 11/05/2023 1:52 AM DIE STORAGE CLERK Body Mass Index 31.48 11/05/2023 1:52 AM DIE STORAGE CLERK Plan of Treatment Health Maintenance Due Date [...] 18+ 11/05/2023 11/05/2022, 04/26/2017 COVID-19 vaccine series (2022-24 season) 2023 08/16/2023, 08/19/2022, 03/05/2022, Additional history exists Influenza for age 65+ 06/10/2024 Advance Directives * Full Code (Latest Code [...] Comments Code Status Discussion: Discussed Care Teams Clinical Program Coordinator Relationship Specialty Start Date End Date Judy Taveras PA-C [address] [place] [address] PCP - General Physician Casing Man 11/08/22
--- OUTSIDE RECORDS SUMMARY | 2024-04-04 14:38 | XMS_ITS | Clinical Summary ---
Author Organization [place] Address [facility] [place] [address] Care Team Providers Care Loss Claim Clerk Name Role Phone Ryanne Gardner MD Primary Care Provider [phone] Medications No known medications Resolved Problems Problem [...] COVID-19 Vaccine ( season) 2023 08/19/2022, 03/05/2022, 07/17/2021, Additional history exists PHQ-2 (once per calendar year) 2023 DTAP/TDAP/TD IMMUNIZATION (2 - Td or Tdap) 04/10/2024 04/10/2014 INFLUENZA VACCINE (Season Ended) 2024 08/11/2021, 09/02/2020, 10/20/2012 HPV IMMUNIZATION Aged Out No longer e [...] age to complete this topic Care Teams Loss Claim Clerk Relationship Specialty Start Date End Date Ryanne Gardner MD [facility] [address] [place] [address] PCP - General 10/19/16
== END 2024-03-27 11:41 | disposition home or self-care (01) ==
LOC: NFLDREF 04-04 14:36
PROVIDERS: PCP Physician Assistant Medical; Referring Provider Physician Assistant Medical; Visit Provider Physician Assistant Medical
DX: E05.90 Thyrotoxicosis, unspecified without thyrotoxic crisis or storm (principal)
CPT/HCPCS: 84443

== ENCOUNTER 2024-05-22 09:15 | Outpatient (RCR) | payer MEDICARE, OTHER, SELFPAY | END 2024-09-19 23:59 | disposition home or self-care (01) | PROVIDERS: PCP Physician Assistant Medical; Visit Provider Physical Medicine & Rehabilitation Pain Medicine | DX: M54.50 Low back pain, unspecified (principal); M46.1 Sacroiliitis, not elsewhere classified; M54.17 Radiculopathy, lumbosacral region; Z51.89 Encounter for other specified aftercare | CPT/HCPCS: 77080; 97032; 97110; 97112; 97140; 97162; 97530 ==

== ENCOUNTER 2024-08-16 10:02 | Outpatient (CLI) | payer MEDICARE, OTHER, SELFPAY ==
--- OUTSIDE RECORDS SUMMARY | 2024-08-16 10:06 | XMS_ITS | Clinical Summary ---
Author Organization [facility] Address [place], [place] [address] Care Team Providers Care Museum Tour Guide Name Role Phone Judy Taveras PA-C Primary Care Provider [phone] Allergies Active Allergy Reactions Criticality Noted Date Comments Celecoxib Nausea Only 06/10/2022 nausea and pressure in head Chlorpheniramine-Phenylpr opan Other - Describe In Comment Field 02/13/2019 Itchy eyes Horseradish Hives Medium 10/10/2016 Lisinopril Cough Medium 10/10/2016 Nitrofurantoin Monohyd/M-Cryst Diarrhea High 10/10/2016 Cqlxfao-Wyw-Clh Reductase Inhibitors Myalgia Medium 10/10/2016 Sulfa (Sulfonamide [...] Active nitroglycerin (NITROSTAT) 0.4 mg sublingual tabletIndications:NSTE SC (non-ST elevated myocardial infarction) (HC) Place 1 [...] daily. 09/03/2022 Active cetirizine (ZYRTEC) 10 mg tabletIndications:seas onal allergic rhinitis Take 10 mg by mouth once daily if needed. Active guar gum (BENEFIBER) powd Mix 1 Tbsp in liquid then take by mouth once daily if needed. MIX IN 4 OZ BEVERAGE/SOFT FOOD. Active rosuvastatin (CRESTOR) 10 mg tabletIndications:Hype rlipidemia, unspecified hyperlipidemia type Take 1 Tablet (10 mg) by mouth at bedtime. 90 Tablet 3 12/09/2023 Active losartan (COZAAR) 50 mg tabletIndications:Pure hypercholesterolemia,H ypertension, unspecified type Take 1 Tablet (50 mg) by mouth once daily. 90 Tablet 3 12/28/2023 Active metoprolol succinate (TOPROL XL) 25 mg Sustained-Release tabletIndications:NSTE SC (non-ST elevated myocardial infarction) (HC) Take 1 Tablet (25 mg) by mouth once daily. 90 Tablet 3 01/23/2024 Active clopidogreL (PLAVIX) 75 mg tabletIndications:ASCV D (arteriosclerotic cardiovascular disease) Take 1 Tablet (75 mg) by mouth once daily. 90 Tablet 3 03/22/2024 Active Active Problems Problem Noted Date Diagnosed Date Abnormal stress test 11/15/2022 Overview (11/15/2022): - stress echo 11/02/22: Positive stress echo for ischemia involving the mid and apical anterior and jair-septal nj. 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 [address] [place] [address] Pasquale Lara MD Medication Management (Plavix hold orders) from Last 3 Months Family History Medical [...] Comments Blood Pressure 163/67 11/05/2023 5:16 AM RECREATION ASSISTANT Pulse 52 11/05/2023 5:16 AM RECREATION ASSISTANT Temperature 36.2 ??C (97.1 ??F) 11/05/2023 1:56 AM CS T Respiratory Rate 20 11/05/2023 1:52 AM RECREATION ASSISTANT Oxygen Saturation 94% 11/05/2023 5:16 AM RECREATION ASSISTANT Inhaled Oxygen Concentration - - Weight 91.2 kg (201 lb) 11/05/2023 1:52 AM RECREATION ASSISTANT Height 170.2 cm (5' 7) 11/05/2023 1:52 AM RECREATION ASSISTANT Body Mass Index 31.48 11/05/2023 1:52 AM RECREATION ASSISTANT Plan of Treatment Health Maintenance Due Date Last Done Comments Tdap 1958 Depression screening for age 12+ 1959 Hepatitis C screening for ag e 18-79 1965 Tetanus booster 1967 Zoster (shingles) series for age 50+ (1 of 2) 1997 DEXA/DXA scan for age 65+ 2012 Medicare Wellness for age 65+ 2012 Pneumococcal series for age 65+ (1 of 1 - PCV) 2012 RSV vaccine for adults or (1 - 1-dose 75+ series) 2022 BMI (ht and wt on same day) for age 18+ 11/05/2023 11/05/2022, 04/26/2017 COVID-19 vaccine series ( season) 2024 08/16/2023, 08/19/2022, 03/05/2022, Additional history exists Influenza [...] Comments Code Status Discussion: Discussed Care Teams Museum Tour Guide Relationship Specialty Start Date End Date Judy Taveras PA-C [address] [place] [address] PCP - General Physician Electromechanic 11/08/22
--- OUTSIDE RECORDS SUMMARY | 2024-08-16 10:06 | XMS_ITS | Clinical Summary ---
Author Organization [place] Address [address] [place] [address] Care Team Providers Care Quality Control Representative Name Role Phone Ryanne Gardner MD Primary Care Provider [phone] Medications No known medications Resolved Problems Problem Noted Date Diagnosed Date Resolved Date Chronic idiopathic constipation 03/11/2023 05/24/2023 Pelvic floor dysfunction 03/11/2023 Social History Tobacco Use Types Packs/Day Years Used Date Smoking Tobacco: Never Assessed Adolescent Education Answer Date Record ed Getting School Help Needed Not on file 07/01 Comments Unknown Sex and Gender Information Value Date Recorded Sex Assigned at Not on file Legal Sex 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 Gender Identity Not on file Sexual Orientation [...] 1987 ZOSTER IMMUNIZATION (1 of 2) 1997 FALL RISK ASSESSMENT 2012 MEDICARE ANNUAL WELLNESS VISIT 2012 Pneumococcal Vaccine: 65+ Years (1 of 1 - PCV) 2012 RSV VACCINE (1 - 1-dose 75+ series) 2022 PHQ-2 (once per calendar year) 2023 DTAP/TDAP/TD IMMUNIZATION (2 - Td or Tdap) 04/10/2024 04/10/2014 COVID-19 Vaccine ( season) 2024 08/19/2022, 03/05/2022, 07/17/2021, Additional history exists INFLUENZA VACCINE (#1) 2024 , 09/02/2020, 10/20/2012 HPV IMMUNIZATION Aged Out No longer e ligible based on patient's age to complete this topic MENINGITIS IMMUNIZATION Aged Out No l onger eligible based on patient's age to complete this topic RSV MONOCLONAL ANTIBODY Aged Out No l onger eligible based on patient's age to complete this topic Insurance MEDICARE MEDICARE MEDICA [employer] Care Teams Quality Control Representative Relationship Specialty Start Date End Date Ryanne Gardner MD [facility] [address] [place] [address] PCP - General 10/19/16
--- OUTSIDE RECORDS SUMMARY | 2024-08-16 10:06 | XMS_ITS | Referral Summary ---
Author Organization [place] Address [address] [place] [address] Care Team Providers Care Military Lawyer Name Role Phone Ryanne Gardner MD Primary Care Provider [phone] Medications No known medications Resolved Problems Problem [...] on file Legal Sex Female 12:45 PM HOME ADVISOR Gender Identity Not on file Sexual Orientation [...] CDT Plan of Treatment Not on file Insurance MEDICARE MEDICARE MEDICA [employer] Care Teams Military Lawyer Relationship Specialty Start Date End Date Ryanne Gardner MD [address] [address] PCP - General 10/19/16
--- NOTE | 2024-08-16 10:15 | CRLHL7_ITS ---
For Patients: As a result of the Cures Act, medical imaging exams and procedure reports are released immediately into your electronic medical record. You may view this report before your referring provider. If you have questions, please contact your health care provider. BILATERAL SCREENING MAMMOGRAM WITH COMPUTER-AIDED DETECTION AND TOMOSYNTHESIS TECHNIQUE: CC and MLO views were obtained. These mammographic images have been obtained using full-field digital technique. These mammographic images were interpreted with the benefit of computer-aided detection. Breast tomosynthesis was used in this interpretation. COMPARISON FILM: 08/15/23, 07/30/22, 06/29/21. FINDINGS: There are scattered areas of fibroglandular density. IMPRESSION: There is no radiographic evidence for malignancy. ASSESSMENT: BI-RADS Category 1: Negative RECOMMENDATION: Routine screening mammogram in 1 year. A lay language report of this examination will be provided to the patient. ADVID CUNNINGHAM M.D. Diagnostic Radiologist [email or web address] Transcribed: 08/23/2024, 4:[address]/Dictated by: David Cunningham MD @ 08/23/2024 9:12:00 AM (Electronically Signed)
== END 2024-08-16 10:03 | disposition home or self-care (01) ==
LOC: MAMMO 10:03
PROVIDERS: PCP Physician Assistant Medical; Visit Provider Physician Assistant Medical
DX: Z12.31 Encounter for screening mammogram for malignant neoplasm of breast (principal)
CPT/HCPCS: 77063; 77067

== ENCOUNTER 2024-11-21 09:20 | Outpatient (CLI) | payer MEDICARE, OTHER, SELFPAY | END 2024-11-21 09:21 | disposition home or self-care (01) | LOC: NFLDREF 11-24 01:55 | PROVIDERS: PCP Physician Assistant Medical; Referring Provider Physician Assistant Medical; Visit Provider Physician Assistant Medical | DX: E11.8 Type 2 diabetes mellitus with unspecified complications (principal); I10 Essential (primary) hypertension; E78.2 Mixed hyperlipidemia; I25.10 Atherosclerotic heart disease of native coronary artery without angina pectoris; Z13.29 Encounter for screening for other suspected endocrine disorder | CPT/HCPCS: 80053; 80061; 82043; 82570; 84439; 84443 ==

== ENCOUNTER 2025-01-10 09:15 | Outpatient (RCR) | payer MEDICARE, OTHER, SELFPAY ==
--- NOTE | 2024-11-23 12:47 | PT.OPE ---
PT [facility] Eval PT [facility] Outpatient Eval Start: 11/22/24 08:49 Freq: Status: Active Protocol: Document 11/22/24 18:00 BMS (Rec: 11/23/24 10:22 BMS [id number]) E-signed By Anitra Perkins PT Physical Therapy Outpatient Evaluation Insurance Information Recert Due Date 02/19/25 Insurance Name Medicare B Provider Fax Number internal Medical Diagnosis Pain in left shoulder M25.512 Treating Diagnosis L shoulder pain M25.512 stiffness of left shoulder M25 .612 Imaging Report Information 11-21-24 xray per EMR No acute or specific findings to explain left shoulder pain. Osteoarthrosis of the glenohumeral and acromioclavicular joints is noted. Diffuse osteopenia. Referring MD Judy Taveras PA-C Subjective Subjective pain and clunking in left shoulder more than right, pain not all the time but with certain movements, like reaching and pulling covers up in bed, lying on my right side my left shoulder hurts, nathalie if I reach back or over head, clunks a lot. Hasnt gotten stuck yet. feel like my fine motor on L is not as good as it used to be ( R handed)) but with things like unscrewing lid sometimes pops off and out of my hand. Still able to sew though. . Did have RFA to lumbar not sure what levels, think it is like 95% better now, but not doing my core ex or pool, with winter not getting out to walk either . Pain Comments 3/10 - clicking and pain in L more than R shoulder. 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 Therapy Limitations/Systems Review Hearing Objective Range of Motion 11/22 AROM cervical flex/ ext 50% loss, rotaiton L = 70, R =50 shoulder R/L: flex 110/120 abd 105/95 ER B=48 IR B T12 Strength MMT seated L flex and abduct 4+/5, ext 5/ 5, bicep tricep ER and IR 5/5 R shoulder, elbow wrist 5/5 B thumb extension and abduction 4+/5. Swelling generalized pitting edema around ankles Palpation mod+ tenderness through RC, jennifer scap, clavicular region. restricted through subscap, UT , levator and pec. crepitus and crack/snap felt with flex, abduct, horizontal abduct, ER and ext. This is felt at deltoid, long head biceps. anchoring of humeral head by therapist does improve this. Balance & Gait decreased arm swing, UE held by body but not stiff Posture L more than R anterior protraction of scap, humeral head, and forward head with increased thoracic kyphosis noted. Sensation/Reflexes intact to light touch. Other/Pertinent Objective empty can 'doesnt feel good', impingement pain with Neer testing. (-) apprehension speeds 'doesnt feel good'. arthritic changes noted in B fingers/hands limiting some end range motion. Functional Test Performed & Score DASH Score -- [employer] About the score Supporting literature About the score developer Visual Score (%) DASH Score: 10 / 100 Click here to download a blank PDF report Instructions: This questionnaire asks about your symptoms as well as your ability to perform certain activities. Please answer every question, based on your condition in the last week. If you did not have the opportunity to perform an activity in the past week, please make your best estimate on which response would be the most accurate. It doesn't matter which hand or arm you use to perform the activity; please answer based on you ability regardless of how you perform the task. Please rate your ability to do the following activities in the last week: 1. Open a tight or new jar. 2. Write. 3. Turn a roman. 4. Prepare a meal. 5. Push open a heavy door. 6. Place an object on a shelf above your head. 7. Do heavy consulting psychologist ( e.g., wash jn, wash floors) . 8. Garden or do yard work. 9. Make a bed. 10. Carry a shopping bag or briefcase 11. Carry a heavy object (over 10 lbs). 12. Change a lightbulb overhead. 13. Wash or blow dry your hair . 14. Wash your back. 15. Put on a pullover sweater. 16. Use a knife to cut food. 17. Recreational activities which require little effort (e .g., cardplaying, knitting, etc.). 18. Recreational activities in which you take some force or impact through your arm, shoulder or hand (eg golf, hammering, tennis, etc). 19. Recreational activities in which you move your arm freely (eg playing frisbee, badminton, etc). 20. Manage transportation needs (getting from one place to another). 21. Sexual activities. 22. During the past week, to what extent has your arm, shoulder or hand problem interfered with your normal social activities with family, friends, neighbours or groups ? 23. During the past week, were you limited in your work or other regular daily activities as a result of your arm, shoulder or hand problem? 24. Arm, shoulder or hand pain . Please rate the severity of the following symptoms in the last week: 25. Arm, shoulder or hand pain when you performed any specific activity. 26. Tingling (pins and needles ) in your arm, shoulder or hand. 27. Weakness in your arm, shoulder or hand. 28. Stiffness in your arm, shoulder or hand. 29. During the past week, how much difficulty have you had sleeping because of the pain in your arm, shoulder or hand? 30. I feel less capable, less confident or less useful because of my arm, shoulder or hand problem. Visual Score (%) DASH Score: 10 / 100 Click here to download a blank PDF report Pertinent positives: Mild difficulty opening a tight or new jar; Mild difficulty placing an object on shelf above head; Mild difficulty carrying a heavy object (>10 lbs.); Mild difficulty performing recreational activities with force or impact through arm/ shoulder/hand; Mild difficulty performing recreational activities in which you move arm freely; Slight limitation of work or regular daily activities due to arm/shoulder /hand; Mild weakness in arm/ shoulder/hand; Mild stiffness in arm/shoulder/hand; Moderate arm/shoulder/hand pain; Moderate difficulty sleeping because of pain in arm/ shoulder/hand; Pertinent negatives: No difficulty writing; No difficulty turning a roman; No difficulty preparing a meal; No difficulty pushing open a heavy door; No difficulty doing heavy consulting psychologist; No difficulty gardening or doing yardwork; No difficulty making a bed; No difficulty carrying a shopping bag or briefcase; No difficulty changing a lightbulb overhead; No difficulty washing or blow drying own hair; No difficulty washing own back; No difficulty putting on a pullover sweater; No difficulty using a knife to cut food; No difficulty performing low effort recreational activities; No difficulty managing transportation needs; No difficulty during sexual activities; No interference of arm/shoulder/hand problem with normal social activities; No pain when performing any specific activity; No tingling (pins + needles) in arm/ shoulder/hand; Strongly disagree that less capable/ confident/useful because of arm/shoulder/hand; Assessment Assessment/Impression Patient is 79 yo female referred to physical therapy for left shoulder pain. She states this has been a problem 'for a while' but is noticing it more and mentioned it at her annual physical. She has been seen in our clinic for variety of concerns x 10 years . Today she returns with c/o Left greater than R shoulder pain and 'clunking' which occurs with certain movements, including reaching for and pulling up covers at night, lying on right side and moving L arm, reaching overhead, pain with reaching back behind . She presents with loss of ROM B but more pain on L with endrange flex, abduct. Crepitus through L RC, long head biceps, and restrictions through R RC, jennifer scap and axillary restrictions noted. She is appropriate for skilled physical therapy to imrpove mobility, functional strength, pain. Primary Functional Limitations reaching, lifting, pushing, pulling, carrying, mostly reaching over head, pulling covers up and lying on right side Plan of Care Rehabilitation Potential Good Rehabilitation Potential Comments patient has been compliant with home recommendations in prior episodes of care, is motivated. Physical Therapy Goals 1) Pt demo independence with HEP and self care/home management techniques for shoulder/elbow pain, increased ROM and strength for return to previous level of function. 2) Pt report pain <= 2/10 with reaching into cupboard without substitution. 1)Pt demo ability to don/doff clothes including shirts and coats without increased pain. 2) Pt demonstrate ability to lift 10# without contortion or substitution patterns of UE or trunk for carrying gallon of milk etc. 3) Pt demo ROM WNL combined flex, abduct and ER to perform grooming and hair brushing. 4) Pt report ability to sleep without waking from pain >2 nights per week in preferred position using appropriate positioning. Coordination/Communication With Referral Source Treatment Plan/Direct Interventions Dry Needling,Electrical Stimulation,Heat,Ice/Cold/ Vasopneumatic,Manual Therapy, Neuromuscular Re-ed,Self-Care/ Home Management,Therapeutic Activities,Therapeutic Exercises,Ultrasound Frequency/Duration 1-2x/ week x up to 12 visits Patient Will Be Discharged From Therapy Completion of LTG(s),Skills Plateau,Independent w/HEP, Independently Progressing Evaluation Billing Untimed Code Treatment Minutes 30 Complexity Low Certification Information Initial Certification Date 11/22/24 Ending Certification Date 02/19/25 Provider Signature Required Yes Provider Signature Shows Agreement With POC & Medical Necessity Physician NPI Number Write NPI# Here Physician Comment/Change : Physician Signature & Date Requested Please Sign/Date Here
== END 2025-05-10 23:59 | disposition home or self-care (01) ==
PROVIDERS: PCP Physician Assistant Medical; Visit Provider Physician Assistant Medical
DX: M25.512 Pain in left shoulder (principal); Z51.89 Encounter for other specified aftercare
CPT/HCPCS: 97110; 97140; 97161

== ENCOUNTER 2025-07-18 12:59 | Outpatient (CLI) | payer MEDICARE, OTHER, SELFPAY | END 2025-07-18 13:00 | disposition home or self-care (01) | LOC: FRMREF 13:00 | PROVIDERS: PCP Physician Assistant Medical; Visit Provider Physician Assistant Medical | DX: E03.8 Other specified hypothyroidism (principal) | CPT/HCPCS: 84443 ==

== ENCOUNTER 2025-09-09 13:06 | Outpatient (CLI) | payer MEDICARE, OTHER, SELFPAY ==
--- NOTE | 2025-09-09 13:20 | CRLHL7_ITS ---
For Patients: As a result of the Century Cures Act, medical imaging exams and procedure reports are released immediately into your electronic medical record. You may view this report before your referring provider. If you have questions, please contact your health care provider. INDICATION: BILATERAL SCREENING MAMMOGRAM, ASYMPTOMATIC 80 Y/O FEMALE COMPARISON: 08/16/2024, 08/15/2023, 07/30/2022 TECHNIQUE: Digital mammogram in CC and MLO projections including computer-aided detection (CAD) and tomosynthesis. BREAST COMPOSITION: There are scattered areas of fibroglandular density. FINDINGS: No suspicious findings. ASSESSMENT: BI-RADS 1 Negative RECOMMENDATION: Annual screening mammogram. A lay language report of this examination will be provided to the patient. Dictated by: David Zambrano MD @ 09/10/2025 09:06:26 (Electronically Signed)
== END 2025-09-09 13:07 | disposition home or self-care (01) ==
LOC: MAMMO 13:06
PROVIDERS: PCP Physician Assistant Medical; Visit Provider Physician Assistant Medical
DX: Z12.31 Encounter for screening mammogram for malignant neoplasm of breast (principal)
CPT/HCPCS: 77063; 77067